=== PATIENT | female | born 1970 | race Caucasian/White ===

== ENCOUNTER 2018-06-11 05:12 | Emergency (ER) | payer MEDICARE ==
[2018-06-11 06:31] LABS: #Basophils 0.1 thou/uL (0.0-0.2); #Eosinphils 0.1 thou/uL (0.0-0.7); #Lymphocytes 2.2 thou/uL (1.20-3.40); #Monocytes 0.8 thou/uL (0.11-0.59); #Neutrophils 5.9 thou/uL (1.40-6.50); %Eosinophils 1.4 % (0.0-10.0); %Lymphocytes 23.9 % (21.0-51.0); %Monocytes 8.3 % (0.0-10.0); %Neutrophils 65.3 % (42.0-75.0); Hemoglobin 11.7 g/dL (12.0-16.0); Mean Corpuscular HGB CONC 32.4 g/dL (32.0-36.0); Mean Corpuscular Hemoglobin 27.6 pg (27.0-31.0); Mean Corpuscular Volume 85.1 fL (78.0-98.0); Mean Platelet Volume 6.8 fL (7.4-10.4); Platelet Count 392 thou/uL (130-400); RBC Distribution Width 13.7 % (11.5-14.5); Red Blood Cell (RBC) Count 4.24 mill/uL (4.20-5.40); White Blood Cell (WBC) Count 9.1 thou/uL (4.8-10.8)
[2018-06-11 06:51] LABS: ALT (SGPT) 30 U/L (8-55); AST (SGOT) 37 U/L (5-34); Albumin 4.2 g/dL (3.5-5.0); Alkaline Phosphatase 128 U/L (40-150); Anion Gap 11 mmol/L (10-20); BUN (Urea Nitrogen) 17 mg/dL (7.0-18.7); Bilirubin, Total 0.9 mg/dL (0.2-1.2); CK (CPK) 132 U/L (29-168); Calc. Creatinine Clearance 0 mL/min (70-130); Calcium 9.5 mg/dL (7.8-10.44); Carbon Dioxide 27 mmol/L (22-29); Chloride 104 mmol/L (98-107); Estimated GFR-MDRD 80; Globulin 3.1 g/dL (2.4-3.5); Glucose 99 mg/dL (70-105); Potassium 3.4 mmol/L (3.5-5.1); Protein, Total 7.3 g/dL (6.0-8.3); Sodium 139 mmol/L (136-145)
[2018-06-11] MEDS ORDERED: Morphine 4 MG/ML VIAL ONE (07:33)
[2018-06-11] MEDS ORDERED: Ondansetron PF 4 MG/2 ML Vial ONE (07:33)
[2018-06-11] MEDS ORDERED: Ketorolac Tromethamine 30 MG/ML VIAL ONE (07:47)
--- NOTE | 2018-06-11 09:00 | RAD ---
CHEST ONE VIEW: INDICATIONS: Chest pain. COMPARISON: 08/06/2011 FINDINGS: There is mild cardiomegaly. There is a right chest wall port in place. No consolidation is evident. Stable elevation of the right hemidiaphragm. Post surgical change overlying the right chest wall i s present. No acute osseous abnormality is evident. IMPRESSION: 1. Mild to moderate cardiomegaly without overt evidence of cardiac decompensation. 2. New right chest wall port. POS: BH
--- NOTE | 2018-06-11 09:18 | CT ---
CTA OF THE THORAX UTILIZING IV CONTRAST AND PE PROTOCOL AND 3D REFORMATTED IMAGING: INDICATION: History of chest pain and lymphedema. COMPARISON: CT of the chest, abdomen, and pelvis dated 05/07/2011 and a CTA of the thorax dated 11/18/2012. FINDINGS: No central or segmental pulmonary embolus is evident. There are patchy peripheral subpleural airspace opacities involving the left upper lobe on image 16 o f series 3. There is subsegmental atelectasis in the lingula and left lower lobe. No confluent airspace opacitie s or pleural effusions evident. There is prominent fatty infiltration of the liver. Adrenal glands are normal-appearing. There are bilateral breast reconstructions. There is scattered degenerative and osteoarthritic change. There is a right chest wall port in place . IMPRESSION: 1. No central or segmental pulmonary embolus. 2. Nonspecific subpleural patchy ground-glass opacities within the left upper lobe. Recommend corre lation for any symptoms and signs of possible bronchitis or bronchiolitis. A small bronchopneumonia cannot be entirely excluded. Recommend appropriate imaging followup to document resolution. A CT ex amination in 6-8 weeks may be helpful to document resolution. 3. Fatty infiltration of the liver. POS: BH
== END 2018-06-11 08:00 | disposition home or self-care (01) ==
LOC: ERS 05:12
DX: J18.9 Pneumonia, unspecified organism (principal); F41.9 Anxiety disorder, unspecified; F31.9 Bipolar disorder, unspecified; Z79.01 Long term (current) use of anticoagulants; Z79.899 Other long term (current) drug therapy
CPT/HCPCS: 71045; 71275; 80053; 82550; 84484; 85025; 93005; 96374; 96375; J1885; J2270; J2405

== ENCOUNTER 2019-02-20 12:55 | Emergency (ER) | payer MEDICARE ==
--- NOTE | 2019-02-20 13:25 | RAD ---
EXAM: 2 views of the left hip HISTORY: Left hip pain COMPARISON: None FINDINGS: 2 views of the left hip shows no evidence of acute fracture or dislocation. No degenerative changes are seen. No soft tissue swelling is present. IMPRESSION: No evidence of acute osseous abnormality.
[2019-02-20] MEDS ORDERED: Ketorolac Tromethamine 60 MG/2 ML VIAL ONE (14:43)
== END 2019-02-20 15:00 | disposition home or self-care (01) ==
LOC: ERS 12:55
DX: M25.552 Pain in left hip (principal); F41.9 Anxiety disorder, unspecified; F31.9 Bipolar disorder, unspecified; Z79.899 Other long term (current) drug therapy; W18.30XA Fall on same level, unspecified, initial encounter
CPT/HCPCS: 96372; J1885

== ENCOUNTER 2019-03-13 12:41 | Outpatient (CLI) | payer MEDICARE, MEDICAID ==
--- NOTE | 2019-03-16 11:19 | MRI ---
EXAM: MRI lumbar spine without contrast HISTORY: Multiple sclerosis COMPARISON: None TECHNIQUE: Multiple planar multisequence MR images were obtained of the lumbar spine without contrast . FINDINGS: The vertebral bodies and intervertebral discs demonstrate normal height and alignment without fractur e or subluxation. The prevertebral and paraspinal soft tissues are unremarkable. No marrow signal abnormality is present. The conus medullaris terminates normally at T12/L1. T12/L1: No significant posterior bulge or protrusion. No posterior facet arthrosis. No central latanya l stenosis. No neural foraminal stenosis L1/2: No significant posterior bulge or protrusion. No posterior facet arthrosis. No central canal stenosis. No neural foraminal stenosis L2/3: No significant posterior bulge or protrusion. No posterior facet arthrosis. No central canal stenosis. No neural foraminal stenosis L3/4: No significant posterior bulge or protrusion. No posterior facet arthrosis. No central canal stenosis. No neural foraminal stenosis L4/5: A mild generalized concentric disc bulge. No posterior facet arthrosis. No central canal sten osis. Mild bilateral neural foraminal stenosis L5/S1: Small central protrusion. No posterior facet arthrosis. Mild central canal stenosis. Mild b ilateral neural foraminal stenosis IMPRESSION: Mild degenerative changes of lumbar spine as above.
--- NOTE | 2019-03-16 11:21 | MRI ---
EXAM: MRI of the brain without and with contrast HISTORY: Multiple sclerosis COMPARISON: None available TECHNIQUE: Multiplanar multisequence MR images were obtained of the brain without and with IV contras t. FINDINGS: There are a few scattered foci of high T2/FLAIR signal in the periventricular white matter. No restricted diffusion. No abnormal enhancement to suggest active disease. No hydronephrosis. No extra-axial fluid collection or intracranial hemorrhage. The expected flow voids are present. Corpus callosum, pituitary, and craniocervical junction are within normal limits. The calvarium and overlying soft tissues are unremarkable. The paranasal sinuses and mastoid air cells are well aerated. IMPRESSION: Scattered periventricular white matter disease is consistent with multiple sclerosis. There is no lena dence of active disease.
--- NOTE | 2019-03-16 11:43 | MRI ---
MRI cervical spine with and without contrast: DATE: 03/16/2019 HISTORY: 49-year-old female with multiple sclerosis and breast cancer. COMPARISON: The dictation for this study was postponed, pending arrival of prior outside MRI from [place]. It is [facility] dictated on 03/16/2019 on information that prior studies are not available. FINDINGS: There appears to be multifocal small patches of T2 hyperintense signal at multiple levels of the cerv ical spine from C3 through T1. There is no abnormal intramedullary, extramedullary-intradural, extradural, intraosseous, or perivertebral, spaces. Vertebral body heights are maintained. No major b one marrow signal abnormality. No significant malalignment. Mild disc space narrowing at C5-6. No high-grade disc space narrowing at any level. Facet DJD is mostly mild at various levels. C1-2: No central stenosis. C2-3: Essentially normal. C3-4: No central or high-grade neural foraminal stenosis. C4-5: No central or neural foraminal stenosis. C5-6: Broad-based disc-osteophytic bar complex encroaches upon the anterior aspect of the spinal latanya l, causing mild to moderate central spinal canal stenosis. Bilateral uncinate process osteophytes, left larger than right, result in mild right neural foraminal stenosis and severe left neural foramin al stenosis. C6-7: Central and right paracentral disc-osteophyte complex encroaches upon spinal canal causing mild central spinal canal stenosis. No high-grade neural foraminal stenosis. C7-T1: No central or neural foraminal stenosis. IMPRESSION: 1. Multifocal small intra-axial signal abnormalities in the cervical spinal cord: Evidence for multip le sclerosis plaques. 2. No evidence of metastatic disease. 3. Mild cervical spondylosis.
== END 2019-03-13 12:42 | disposition home or self-care (01) ==
LOC: SCSMRI 12:41
PROVIDERS: ATTEND Psychiatry & Neurology Neurology
DX: G35 Multiple sclerosis (principal); M47.812 Spondylosis without myelopathy or radiculopathy, cervical region; M47.816 Spondylosis without myelopathy or radiculopathy, lumbar region; G93.89 Other specified disorders of brain
CPT/HCPCS: 70553; 72141; 72148

== ENCOUNTER 2019-05-03 16:24 | Emergency (ER) | payer MEDICAID, MEDICARE ==
[~2019-05-03 16:24] MED LIST: Iopamidol-370 76% 500 ML 1 ML ONE
[2019-05-03 17:08] LABS: #Basophils 0.1 thou/uL (0.0-0.2); #Eosinphils 0.2 thou/uL (0.0-0.7); #Lymphocytes 1.8 thou/uL (1.20-3.40); #Monocytes 0.6 thou/uL (0.11-0.59); #Neutrophils 4.3 thou/uL (1.40-6.50); %Basophils 0.9 % (0.0-1.0); %Eosinophils 3.4 % (0.0-10.0); %Lymphocytes 25.6 % (21.0-51.0); %Monocytes 8.7 % (0.0-10.0); %Neutrophils 61.5 % (42.0-75.0); Mean Corpuscular HGB CONC 34.6 g/dL (32.0-36.0); Mean Corpuscular Hemoglobin 29.9 pg (27.0-31.0); Mean Corpuscular Volume 86.4 fL (78.0-98.0); Mean Platelet Volume 6.9 fL (7.4-10.4); Platelet Count 320 thou/uL (130-400); RBC Distribution Width 12.9 % (11.5-14.5); Red Blood Cell (RBC) Count 4.35 mill/uL (4.20-5.40); White Blood Cell (WBC) Count 7.1 thou/uL (4.8-10.8)
--- NOTE | 2019-05-03 17:29 | RAD ---
EXAM: Chest PA and lateral: HISTORY: Chest pain. Midsternal chest pain, x2 weeks COMPARISON: 06/11/2018 FINDINGS: Stable right-sided Mediport catheter. Heart: Normal cardiac silhouette Aorta: Unremarkable Pulmonary vessels: Normal Costophrenic angles: Costophrenic angles are clear. Lungs: No consolidation or masses. Pneumothorax: No pneumothorax Osseous structures: No osseous abnormalities IMPRESSION: No acute cardiopulmonary process.
[2019-05-03 17:32] LABS: ALT (SGPT) 42 U/L (8-55); AST (SGOT) 45 U/L (5-34); Albumin 4.6 g/dL (3.5-5.0); Alkaline Phosphatase 93 U/L (40-110); Anion Gap 12 mmol/L (10-20); BUN (Urea Nitrogen) 12 mg/dL (7.0-18.7); Bilirubin, Total 0.8 mg/dL (0.2-1.2); Calc. Creatinine Clearance 0 mL/min (70-130); Calcium 9.5 mg/dL (7.8-10.44); Carbon Dioxide 27 mmol/L (22-29); Chloride 104 mmol/L (98-107); Estimated GFR-MDRD 77; Globulin 2.9 g/dL (2.4-3.5); Glucose 114 mg/dL (70-105); Potassium 3.9 mmol/L (3.5-5.1); Protein, Total 7.5 g/dL (6.0-8.3); Sodium 139 mmol/L (136-145)
--- NOTE | 2019-05-03 20:15 | CT ---
Exam: CT angiogram of the chest HISTORY: Chest pain, intermittent. Symptoms x2 weeks COMPARISON: 06/11/2018 TECHNIQUE: CT angiogram of the chest is performed in the axial plane. Three-dimensional reformatted i mages are submitted for interpretation FINDINGS: Mediastinum: No mass, lymphadenopathy or hematoma. HEART: Normal size. No significant pericardial fluid. Aorta: No aneurysm or dissection Upper solid abdominal viscera: No abnormal enhancement. Hepatic steatosis is noted Trachea and central bronchi: Patent Pleural spaces: No effusion Lung parenchyma: No masses or consolidation. Linear opacity suggest chronic change Pneumothorax: None Osseous structures: No lytic or blastic lesions Pulmonary arteries: Adequate contrast opacification pulmonary arterial system to the level of segment al arteries. No filling defect to suggest pulmonary embolism IMPRESSION:No evidence of pulmonary artery embolism to the level of the segmental arteries
[2019-05-03 21:42] LABS: Troponin I Less than 0.010 ng/mL (< 0.028)
== END 2019-05-03 22:55 | disposition home or self-care (01) ==
LOC: ERS 16:24
DX: R07.2 Precordial pain (principal); F41.9 Anxiety disorder, unspecified; F31.9 Bipolar disorder, unspecified; Z79.01 Long term (current) use of anticoagulants; Z79.899 Other long term (current) drug therapy; Z79.4 Long term (current) use of insulin
CPT/HCPCS: 36415; 71046; 71275; 80053; 84484; 85025; 85379; 93005; Q9967

== ENCOUNTER 2019-05-04 09:43 | Observation (INO) | payer MEDICARE ==
[2019-05-04 10:59] LABS: #Basophils 0.1 thou/uL (0.0-0.2); #Eosinphils 0.3 thou/uL (0.0-0.7); #Lymphocytes 2.3 thou/uL (1.20-3.40); #Monocytes 0.8 thou/uL (0.11-0.59); #Neutrophils 2.4 thou/uL (1.40-6.50); %Basophils 1.9 % (0.0-1.0); %Eosinophils 5.1 % (0.0-10.0); %Lymphocytes 39.3 % (21.0-51.0); %Neutrophils 40.8 % (42.0-75.0); Mean Corpuscular HGB CONC 33.2 g/dL (32.0-36.0); Mean Corpuscular Hemoglobin 29.5 pg (27.0-31.0); Mean Corpuscular Volume 88.9 fL (78.0-98.0); Mean Platelet Volume 6.6 fL (7.4-10.4); Platelet Count 299 thou/uL (130-400); RBC Distribution Width 13.1 % (11.5-14.5); Red Blood Cell (RBC) Count 4.07 mill/uL (4.20-5.40); White Blood Cell (WBC) Count 5.8 thou/uL (4.8-10.8)
[2019-05-04 11:15] LABS: ALT (SGPT) 38 U/L (8-55); AST (SGOT) 39 U/L (5-34); Albumin 4.1 g/dL (3.5-5.0); Alkaline Phosphatase 90 U/L (40-110); Anion Gap 10 mmol/L (10-20); BUN (Urea Nitrogen) 12 mg/dL (7.0-18.7); Bilirubin, Total 0.5 mg/dL (0.2-1.2); CK (CPK) 35 U/L (29-168); Calc. Creatinine Clearance 0 mL/min (70-130); Calcium 8.8 mg/dL (7.8-10.44); Carbon Dioxide 29 mmol/L (22-29); Chloride 103 mmol/L (98-107); Estimated GFR-MDRD 79; Globulin 2.7 g/dL (2.4-3.5); Glucose 96 mg/dL (70-105); Lipase 19 U/L (8-78); Potassium 3.7 mmol/L (3.5-5.1); Protein, Total 6.8 g/dL (6.0-8.3); Sodium 138 mmol/L (136-145)
[2019-05-04] MEDS ORDERED: Aspirin Chewable 81 MG TAB ONE (12:50)
[2019-05-04] MEDS ORDERED: Senokot S 8.6-50 MG TAB PO PRN (14:38)
[2019-05-04] MEDS ORDERED: Acetaminophen 650 MG Suppository PR PRN (14:38)
[2019-05-04] MEDS ORDERED: Guaifenesin DM 100-10/5 ML UDCUP PO PRN (14:38)
[2019-05-04] MEDS ORDERED: Ketorolac Tromethamine 30 MG/ML VIAL IVP PRN (14:38)
[2019-05-04] MEDS ORDERED: Ondansetron ODT 4 MG TAB PO PRN (14:38)
[2019-05-04] MEDS ORDERED: Ondansetron PF 4 MG/2 ML Vial IVP PRN (14:38)
[2019-05-04 14:47] VITALS: BMI 38.3
--- NOTE | 2019-05-04 14:58 | HP ---
PRIMARY CARE PHYSICIAN: Sandra Law MD CHIEF COMPLAINT: Chest pain and shortness of breath. HISTORY OF PRESENT ILLNESS: This is a 49-year-old white female with a known history of multiple PEs on the lung on Xarelto chronically, also with a history of a previous pericarditis episode while being treated for breast cancer with chemotherapy and with a history of fibromyalgia with chronic pain, who presents with a 2-week history of worsening chest pain along with shortness of breath. The patient reports that two weeks ago, she started having pressure in the middle of her chest right over her sternum. This caused some shortness of breath with ambulation and a little worse when she laid down flat. She is napping as proper herself up to sleep at night. The patient reports that two days ago, it got severely worse. She does report that she has short pain radiating to bilateral chest and back whenever she lays down completely flat now. She does not have much pain or pressure, if she stays seated completely still sitting up. She denies any fever, cough, nausea, vomiting, or worsening edema or any other acute symptoms. She was just to her , who is in the room one week ago, which is a possible stressor right now. PAST MEDICAL HISTORY: 1. Pulmonary embolism x4 on chronic anticoagulation. 2. Migraines. 3. Hepatitis C. 4. Breast cancer with lymph node spread, status post surgical resection, lymph node dissection and chemotherapy in remission. 5. Cervical cancer status post surgical resection. 6. Nonepileptic seizures on Keppra. 7. Multiple sclerosis of the spine. 8. Fibromyalgia with chronic pain on buprenorphine patch weekly. 9. Lymphedema worst in the left upper extremity, but present in all extremities. 10. Chronic constipation, supposed to take lactulose every 7 days, if no bowel movement, but she has not done that and has not had a bowel movement for a month, which is not unusual for her. PAST PSYCHIATRIC HISTORY: 1. Bipolar type 1 with manic episodes. 2. Previous suicidal ideation and attempts. 3. PTSD. 4. Anxiety. PAST SURGICAL HISTORY: 1. Left breast surgery in 2010. 2. Lymph node, axillary node resection in 2012 in the left side. 3. Hysterectomy. SOCIAL HISTORY: No current tobacco, alcohol, or illicit drug use. 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 She is newly , lives with her , previously was and does have children. FAMILY HISTORY: Mother smokes and with coronary artery disease, diabetes, and cancer. Maternal grandmother had breast cancer and of alcoholism. She has two brothers, one with coronary artery disease, one of them from an acute CT at 42 and she has a sister with diabetes. ALLERGIES: 1. LAMICTAL. 2. MORPHINE. 3. PENICILLIN, WHICH CAUSES ANAPHYLAXIS. CURRENT MEDICATIONS: 1. Xarelto 20 mg daily. 2. Latuda 80 mg at bedtime. 3. Vistaril 100 mg twice a day. 4. Keppra 500 mg twice a day. 5. Buprenorphine patch 7.5 mcg/hour transdermal applied once a week. 6. Tecfidera 240 mg twice a day. REVIEW OF SYSTEMS: CONSTITUTIONAL: No fevers. No chills. EYES: No double vision or blurred vision. ENT: No congestion, drainage, or sore throat. CARDIOVASCULAR: See HPI. PULMONARY: No coughing or wheezing. She does have orthopnea and dyspnea on exertion as per the HPI. ABDOMEN: She has chronic abdominal pain and chronic constipation. No nausea or vomiting. She has had constipation. No bowel movement for one month. GENITOURINARY: No dysuria or hematuria. MUSCULOSKELETAL: She has chronic muscle aches in the back and bilateral lower extremities that are at baseline. SKIN: No new rashes or other lesions. NEUROLOGIC: No numbness, tingling, or focal weakness. PSYCHIATRIC: Her bipolar is well controlled right now without any symptoms. PHYSICAL EXAMINATION: VITAL SIGNS: Blood pressure 113/88, pulse 77, respirations 16, temperature 98.9, and O2 saturation 98% on room air. GENERAL: This is a well-developed, obese white female, in no acute distress. HEENT: Pupils are equal, round, and reactive to light. Oropharynx clear without lesions, erythema, or exudate. NECK: Supple. No lymphadenopathy. No thyroid nodules or enlargement. No JVD. HEART: Regular rate and rhythm. No murmurs, rubs, or gallops. LUNGS: Clear to auscultation bilaterally. No wheezes, crackles, or rhonchi. She does have significant tenderness to palpation of this sternal area, which reproduces her pain. ABDOMEN: Soft, obese, and nontender to palpation. Normoactive bowel sounds. No hepatosplenomegaly or other masses. EXTREMITIES: No clubbing or cyanosis. She does have some nonpitting edematous changes especially to the left upper extremity with a little bit to her other extremities as well consistent with chronic venous insufficiency. SKIN: No rashes or lesions noted. NEUROLOGIC: Intact strength and sensation in all extremities. No facial droop. PSYCHIATRIC: Alert and oriented x3. Normal mood and affect. LABORATORY DATA: CBC grossly within normal limits. Coagulation profile shows an elevated D-dimer. Complete metabolic panel shows AST of 39. The rest is completely normal. Cardiac marker sets negative x3. Brain natriuretic peptide less than 10. IMAGING: The patient had a CT scan done yesterday when she originally presented for this. She initially did not want to be admitted, so she left, but came back today when she had second thoughts about getting this worked up. CTA of the chest was negative for any pulmonary embolism. Chest x-ray, I did review the chest x-ray done in the emergency room along with the radiologist's report. The patient has a port in place, but no acute cardiopulmonary process visible. EKG, I did review the EKG done in the emergency room both today and yesterday, they show some persistent T-wave inversions that appear chronic for her. No acute ST-segment changes. ASSESSMENT AND PLAN: 1. Chest pain. Differentials are wide here. She does not appear to be having heart attack, though she does have risk factors for coronary artery disease. The patient has risk factors for coronary artery disease, might benefit from stress testing at some point. However, I am concerned that she may actually be having some pericarditis at this point, so we will hold off any stress testing now. We will get an echocardiogram and consult Cardiology to evaluate her. She may need to be treated with any inflammatories for this pain. We will observe her on the garbage collector overnight. 2. History of pulmonary embolism. She has no pulmonary embolism currently. We will continue her Xarelto. 3. History of possible seizures or pseudoseizures. We will continue her Keppra. 4. Gastrointestinal prophylaxis. Put the patient on Protonix daily given the likelihood of needing nonsteroidal anti-inflammatory drugs for control of pain. 5. Bipolar. Resume the patient's medications once they were inserted in the computer. 6. Chronic pain. We will continue her patch. 7. Code status. I did discuss this with the patient, she is a full code. Should she be incapacitated, her would be her medical decision maker, his name is Morro Lino. Job ID: [id number]
[2019-05-04 16:10] LABS: Troponin I Less than 0.010 ng/mL (< 0.028)
[2019-05-04] MEDS: Naproxen 500 MG TAB PO SCH (21:04)
[2019-05-04] MEDS: levETIRAcetam 500 MG TAB PO SCH (21:05)
[2019-05-04] MEDS: hydrOXYzine Pamoate 25 mg Capsule PO SCH (21:05)
--- NOTE | 2019-05-04 23:30 | CON ---
DATE OF CONSULTATION: 05/04/2019 HISTORY OF PRESENT ILLNESS: Shoshana Johnson is a 49-year-old white female, admitted with 2 weeks of chest discomfort. She has previous history of pulmonary embolism x4 on chronic Xarelto, history of breast cancer, and history of previous pericarditis while being treated for breast cancer. She states that this discomfort has being continuous for 2 weeks. It is in the epigastric area and that radiates from both sides to her back. The pain is definitely pleuritic in nature. The pain is worse when she is supine and better when she is sitting up. She denies any extensive physical activity. PAST MEDICAL HISTORY: Pulmonary embolism x4, on chronic Xarelto. Her four pulmonary embolisms occurred when she was not on anticoagulation. History of breast cancer with metastatic disease. Lymph node status post surgical resection. She had undergone radiation therapy, as well as chemotherapy. Last treatment was in May 2018. Multiple sclerosis of the spine. Nonepileptic seizures on Keppra.Fibromyalgia with chronic pain, bipolar type 1, manic episodes, history of suicidal ideation and attempts. PTSD. Anxiety. PAST SURGICAL HISTORY: Left breast surgery in 2010 with lymph node dissection in 2011. Hysterectomy. MEDICATIONS: 1. Butrans one patch q.7 days. 2. Tecfidera 240 mg b.i.d. 3. Gabapentin 900 b.i.d. 4. Keppra 500 b.i.d. 5. Latuda 80 mg q.p.m. 6. Xarelto 20 daily. 7. Trazodone 50 q.p.m. ALLERGIES: PENICILLIN AND LAMICTAL. SOCIAL HISTORY: Does not smoke or drink. FAMILY HISTORY: Mother has coronary artery disease. PHYSICAL EXAMINATION: VITAL SIGNS: Blood pressure 134/74, pulse 80. HEENT: PERRL. NECK: Supple. CHEST: Clear. CARDIAC: S1 and S2 normal without any S3, S4, murmurs, or rubs. ABDOMEN: Obese. Normal bowel sounds. No tenderness or organomegaly. EXTREMITIES: Revealed no clubbing, cyanosis, or edema. NEUROLOGICAL: Grossly intact. SKIN: Warm and dry. MUSCULOSKELETAL: Examination revealed reproduction of her pain with palpation of the lower sternum. Pain also was intensified with deep inspiration. LABORATORY DATA: EKG reveals normal sinus rhythm with nonspecific T-wave changes. Cardiac enzymes are unremarkable. CBC is unremarkable. D-dimer 0.69. Sodium 138, potassium 3.7, chloride 103, carbon dioxide 29, BUN 12, creatinine 0.78. BNP less than 10.0. CT angiogram of the chest revealed no evidence of pulmonary embolism. There was no significant pericardial fluid. IMPRESSION: 1. Chest wall pain with palpable tenderness reproducing her symptoms. 2. History of previous pericarditis with palpable chest wall tenderness, I do not feel that this is pericarditis. 3. History of pulmonary embolism x4 with negative CT angiogram at this time. 4. History of metastatic breast cancer status post lymph node dissection, radiation therapy and chemotherapy. 5. Bipolar disorder. 6. History of possible seizures. RECOMMENDATIONS: Best option for therapy would be nonsteroidal anti- inflammatory drugs, which can be problematic in someone who is fully anticoagulated. The long-term prophylaxis for recurrent pulmonary embolism with Xarelto is 10 mg daily. I will reduce her dose of Xarelto 10 mg daily and start naproxen. I will follow the patient with you. Job ID: [id number] MTDD
[2019-05-04] MEDS: Acetaminophen 325 MG TAB PO PRN (23:55)
[2019-05-05] MEDS: Acetaminophen 325 MG TAB PO PRN ×2 (04:49→15:47)
[2019-05-05 05:31] LABS: Anion Gap 10 mmol/L (10-20); BUN (Urea Nitrogen) 12 mg/dL (7.0-18.7); Calc. Creatinine Clearance 148 mL/min (70-130); Calcium 8.8 mg/dL (7.8-10.44); Carbon Dioxide 30 mmol/L (22-29); Chloride 104 mmol/L (98-107); Estimated GFR-MDRD 78; Glucose 98 mg/dL (70-105); Potassium 3.8 mmol/L (3.5-5.1); Sodium 140 mmol/L (136-145)
[2019-05-05 06:48] LABS: Hemoglobin 11.5 g/dL (12.0-16.0); Mean Corpuscular HGB CONC 33.8 g/dL (32.0-36.0); Mean Corpuscular Hemoglobin 29.2 pg (27.0-31.0); Mean Corpuscular Volume 86.4 fL (78.0-98.0); Mean Platelet Volume 7.3 fL (7.4-10.4); Platelet Count 223 thou/uL (130-400); RBC Distribution Width 12.9 % (11.5-14.5); Red Blood Cell (RBC) Count 3.94 mill/uL (4.20-5.40); White Blood Cell (WBC) Count 4.7 thou/uL (4.8-10.8)
[2019-05-05 06:58] LABS: Band 1 % (5-11); Eosinophils 3 % (0-10); Lymphocytes 50 % (21-51); MDiff Complete? YES; Monocytes 11 % (0-10); Neutrophil 34 % (42-75)
--- NOTE | 2019-05-05 08:50 | PDOC.HOSPP ---
- Subjective Encounter Date: 05/05/19 Encounter Time: 08:48 Subjective: chest pain improved - Objective Vital Signs & Weight: Vital Signs (12 hours) Temp Pulse Resp BP Pulse Ox 05/05/19 08:10 97.6 F 72 18 138/70 94 L 05/05/19 03:41 98.3 F 80 12 116/60 91 L 05/04/19 23:17 98.4 F 90 13 141/94 H 94 L Weight Weight 237 lb 9.6 oz I&O: 05/04/19 05/05/19 05/06/19 06:59 06:59 06:59 Intake Total 248 Output Total 200 Balance 48 Result Diagrams: 05/05/19 04:55 05/05/19 04:55 Hospitalist ROS - Medication Medications: Active Medications Generic Name Dose Route Start Last Admin Trade Name Freq PRN Reason Stop Dose Admin Acetaminophen 650 mg 05/04/19 14:38 05/05/19 04:49 Tylenol PO 650 mg Q4H PRN Administration Headache/Fever/Mild Pain (1-3) Hydroxyzine Pamoate 100 mg 05/04/19 21:00 05/04/19 21:05 Vistaril PO 100 mg BID DEBBIE Administration Levetiracetam 500 mg 05/04/19 21:00 05/04/19 21:05 Keppra PO 500 mg BID DEBBIE Administration Naproxen 500 mg 05/04/19 21:00 05/04/19 21:04 Naprosyn PO 500 mg BID DEBBIE Administration - Exam General Appearance: awake alert General - other findings: tender at lower sternum, reproduces her symptoms Neck: no JVD Heart: RRR, no murmur Respiratory: CTAB Gastrointestinal: soft, normal bowel sounds Extremities: 1+ LE edema Hosp A/P (1) Chest wall pain Code(s): R07.89 - OTHER CHEST PAIN Status: Acute (2) Anticoagulant long-term use Code(s): Z79.01 - RETIREMENT (CURRENT) USE OF ANTICOAGULANTS Status: Acute (3) Hepatitis C Code(s): B19.20 - UNSPECIFIED VIRAL HEPATITIS C WITHOUT HEPATIC COMA Status: Acute (4) Fibromyalgia Status: Acute - Plan reviewed Dr Almaraz consult cont per his recomendatios FU later today
[2019-05-05] MEDS: hydrOXYzine Pamoate 25 mg Capsule PO SCH (08:56)
[2019-05-05] MEDS: levETIRAcetam 500 MG TAB PO SCH (08:58)
[2019-05-05] MEDS: Naproxen 500 MG TAB PO SCH (08:59)
[2019-05-05] MEDS ORDERED: Rivaroxaban 10 MG TAB PO SCH ×2 (09:00)
[2019-05-05] MEDS ORDERED: FLU VACC QS2019-20(6MOS UP)/PF 60 MCG/0.5 ML SYRINGE IM ONE (09:00)
[2019-05-05] MEDS ORDERED: Prevnar 13-Val Conj/PF 0.5 ML SYRINGE IM ONE (09:00)
[2019-05-05 16:25] VITALS: BP 112/59; TEMP 97.4
--- NOTE | 2019-05-05 18:00 | DIS ---
DATE OF ADMISSION: 05/04/2019 DATE OF DISCHARGE: 05/05/2019 PRIMARY CARE PROVIDER: Sandra Law MD DISPOSITION: Discharged home. FINAL DIAGNOSES: Chest wall pain, history of deep vein thrombosis, long-term use of anticoagulants, fibromyalgia, hepatitis C. DISCHARGE MEDICATIONS: 1. Her Xarelto was reduced from 20 mg to 10 mg a day. 2. Trazodone 50 mg a day. 3. Naprosyn 500 mg p.o. b.i.d. for one week. ALLERGIES: ALLERGIC TO PENICILLINS, LAMICTAL. HOSPITAL COURSE: Consultation, Dr. Martir Almaraz. Procedures, none. The patient was admitted to the Hospitalist Service through [facility] with chest pain, shortness of breath. Her history is pertinent for pulmonary embolism, on Xarelto maintenance long-term. Laboratory revealed a CBC that is unremarkable. Comprehensive metabolic profile was normal except for AST of 39. Cardiac enzymes normal x3. Dr. Almaraz saw the patient, considered chest wall pain, reduced her Xarelto from 20 to 10 a day, recommended Naprosyn 500 mg p.o. b.i.d. The patient is feeling better. I have given her a prescription for 30 days of Xarelto 10 mg a day, prescription for Naprosyn 500 mg p.o. b.i.d. I have gone over the risk of GI upset, etc with Naprosyn. Urged her for abdominal pain, nausea, vomiting, any bleeding, to return immediately to the emergency department. I asked her to see her primary care provider in 3 days for consideration of continuing therapy. Job ID: [id number]
== END 2019-05-05 18:21 | disposition home or self-care (01) ==
LOC: ERS 09:43 → 2SW 14:34
PROVIDERS: ADMIT Emergency Medicine; ATTEND Emergency Medicine
DX: R07.89 Other chest pain (principal); M79.7 Fibromyalgia; G43.909 Migraine, unspecified, not intractable, without status migrainosus; G35 Multiple sclerosis; K59.09 Other constipation; F31.9 Bipolar disorder, unspecified; F43.10 Post-traumatic stress disorder, unspecified; F41.9 Anxiety disorder, unspecified; G89.29 Other chronic pain; Z85.3 Personal history of malignant neoplasm of breast; Z86.711 Personal history of pulmonary embolism; Z86.718 Personal history of other venous thrombosis and embolism; Z91.5 Personal history of self-harm; Z79.01 Long term (current) use of anticoagulants; Z79.899 Other long term (current) drug therapy; Z88.0 Allergy status to penicillin; Z88.8 Allergy status to other drugs, medicaments and biological substances
CPT/HCPCS: 80048; 80053; 82550; 83690; 83880; 84484 ×2; 85025 ×2; 85379; 90670; 90686; 93005; 93306; 96360; 99285; G0008; G0009; 36416; 90471; 96361; 96374; G0378; J1885; Q0177

== ENCOUNTER 2019-08-07 11:29 | Emergency (ER) | payer MEDICAID, MEDICARE ==
[2019-08-07] MEDS ORDERED: HYDROcodone/Acetaminophen 5/325 mg Tablet ONE (11:57)
[2019-08-07 12:04] LABS: #Basophils 0.1 thou/uL (0.0-0.2); #Eosinphils 0.4 thou/uL (0.0-0.7); #Lymphocytes 2.9 thou/uL (1.20-3.40); #Monocytes 0.7 thou/uL (0.11-0.59); #Neutrophils 4.7 thou/uL (1.40-6.50); %Basophils 1.1 % (0.0-1.0); %Eosinophils 4.9 % (0.0-10.0); %Lymphocytes 32.3 % (21.0-51.0); %Monocytes 8.3 % (0.0-10.0); %Neutrophils 53.4 % (42.0-75.0); Hemoglobin 11.7 g/dL (12.0-16.0); Mean Corpuscular HGB CONC 31.7 g/dL (32.0-36.0); Mean Corpuscular Hemoglobin 27.7 pg (27.0-31.0); Mean Corpuscular Volume 87.3 fL (78.0-98.0); Mean Platelet Volume 6.4 fL (7.4-10.4); Platelet Count 373 thou/uL (130-400); RBC Distribution Width 12.8 % (11.5-14.5); Red Blood Cell (RBC) Count 4.22 mill/uL (4.20-5.40); White Blood Cell (WBC) Count 8.8 thou/uL (4.8-10.8)
--- NOTE | 2019-08-07 12:26 | CT ---
CT BRAIN WITHOUT CONTRAST: Date: 08/07/2019 HISTORY: Trauma to head. Patient is on anticoagulant. COMPARISON: 11/17/2010. FINDINGS: No evidence of acute infarct, hemorrhage, midline shift, or abnormal extra-axial fluid collections ar e seen. The ventricular size is normal and the basilar cisterns are patent. The bony calvarium is int act. The visualized paranasal sinuses and mastoid air cells are well aerated. IMPRESSION: No CT evidence of acute intracranial process. POS: C
--- NOTE | 2019-08-07 12:28 | CT ---
Exam: CT cervical spine without contrast HISTORY: Trauma. Pain. COMPARISON: None FINDINGS: No craniocervical dissociation. Appropriate alignment of the lateral masses of C1 and C2. Intact odon toid process Appropriate alignment of the facets. Straightening of normal cervical lordosis may be due to patient position, muscle spasm or cervical co llar Soft tissue neck structures: No mass, lymphadenopathy or hematoma. No prevertebral soft tissue swelli ng. Upper mediastinum and lung apices: Unremarkable Central spinal canal: Neural foramina and central spinal canal are patent. Evaluation is limited by t echnique Vertebral bodies: Cervical spine vertebral body height is maintained. No fracture. IMPRESSION: 1. No fracture 2. Straightening of normal cervical lordosis as above. If there is concern for ligamentous injury, co nsider MRI.
[2019-08-07 12:29] LABS: Bacteria/HPF None Seen HPF (None Seen); Bilirubin Negative (Negative); Blood, Urine Negative (Negative); Clarity Clear (Clear); Glucose, Urine (Dipstick) Normal (Negative); Leukocyte 25 Leu/uL (Negative); Nitrite Negative (Negative); Protein, Urine (Dipstick) 10 mg/dL (Neg-Trace); RBC/HPF 0-3 HPF (0-3); Squamous Epithelial 0-3 HPF (0-3); Urobilinogen Normal mg/dL (Less than 2); WBC/HPF 0-3 HPF (0-3)
[2019-08-07 12:33] LABS: ALT (SGPT) 51 U/L (8-55); AST (SGOT) 42 U/L (5-34); Alkaline Phosphatase 139 U/L (40-110); Anion Gap 12 mmol/L (10-20); BUN (Urea Nitrogen) 14 mg/dL (7.0-18.7); Bilirubin, Total 0.3 mg/dL (0.2-1.2); Calc. Creatinine Clearance 0 mL/min (70-130); Calcium 9.1 mg/dL (7.8-10.44); Carbon Dioxide 29 mmol/L (22-29); Chloride 102 mmol/L (98-107); Estimated GFR-MDRD 77; Globulin 2.6 g/dL (2.4-3.5); Glucose 128 mg/dL (70-105); Potassium 4.4 mmol/L (3.5-5.1); Protein, Total 6.6 g/dL (6.0-8.3); Sodium 139 mmol/L (136-145)
== END 2019-08-07 13:52 | disposition home or self-care (01) ==
LOC: ERS 11:29
DX: S00.03XA Contusion of scalp, initial encounter (principal); F31.9 Bipolar disorder, unspecified; F41.9 Anxiety disorder, unspecified; Z79.01 Long term (current) use of anticoagulants; Z79.899 Other long term (current) drug therapy; Z86.711 Personal history of pulmonary embolism; Z85.72 Personal history of non-Hodgkin lymphomas; W01.0XXA Fall on same level from slipping, tripping and stumbling without subsequent striking against object, initial encounter
CPT/HCPCS: 36415; 51701; 70450; 72125; 80053; 81003; 81015; 84484; 85025; 93005; A4353

== ENCOUNTER 2019-08-20 10:50 | Outpatient (CLI) | payer MEDICARE ==
--- NOTE | 2019-08-20 13:08 | RAD ---
LUMBAR SPINE 6 VIEWS: Date: 08/20/2019 HISTORY: Back pain. MS. FINDINGS: Lumbar vertebra maintain height and alignment. There is a limbus vertebra deformity involving the ant erior superior corner of the L4 vertebra. The disc spaces are preserved. Very mild degenerative spurring. Mild facet hypertrophy. No evidence o f spondylolisthesis or spondylolysis. IMPRESSION: Mild degenerative change. Limbus vertebra at L4 is noted. POS: AGW
== END 2019-08-20 10:51 | disposition home or self-care (01) ==
LOC: SCSRAD 10:50
PROVIDERS: ATTEND Psychiatry & Neurology Neurology
DX: G35 Multiple sclerosis (principal); M47.816 Spondylosis without myelopathy or radiculopathy, lumbar region; M43.8X6 Other specified deforming dorsopathies, lumbar region
CPT/HCPCS: 72100

== ENCOUNTER 2020-01-22 12:36 | Outpatient (CLI) | payer MEDICARE ==
--- NOTE | 2020-01-22 16:13 | MRI ---
MRI BRAIN WITH AND WITHOUT CONTRAST: DATE: 01/22/2020 HISTORY: 49-year-old female with multiple sclerosis. Follow-up. G 35. COMPARISON: 03/13/2019 TECHNIQUE: Multiplanar, multisequence MRI of the brain performed pre- and post-IV injection of gadolinium based contrast agent. FINDINGS: Again noted are the multiple T2 and FLAIR hyperintense lesions, most with Burks's finger configurati on is, involving the bilateral periventricular white matter, extending short distances into the centrum semiovale. There are tiny such lesions involving the undersurface of the corpus callosum incl uding septocallosal interface. These are not only around the bodies of the lateral ventricles bilaterally, but also around the occipital horns and right trigone. There is no enhancement of any of these to indicate active demyelination. There is no involvement of the brachium pontis. There are no new lesions. Ventricles are normal in size and configuration. No mass effect, midline shift, or ex tra-axial fluid collection. No interval change overall. IMPRESSION: 1) mild to moderate demyelinating plaque burden of multiple sclerosis involvement of the brain. 2) no interval change.
--- NOTE | 2020-01-22 16:59 | MRI ---
MRI thoracic spine noncontrast: 01/22/2020 HISTORY: 49-year-old female with multiple sclerosis with bilateral lower extremity weakness. COMPARISON: None FINDINGS: There is degradation of axial images due to motion. There is a large number of T2 hyperintense intram edullary lesions extensively in a patchy manner involving a significant portion of the cross-sectional area of the spinal cord, at all levels throughout the entire thoracic spinal cord. Th ere is no syrinx. No extrinsic cord compression. The cord is diffusely slightly small in caliber for the patient's age. No central spinal canal stenosis. Conus medullaris terminates at approximately T12-L1. Thoracic vertebral body heights are maintained. No high-grade bone marrow signal abnormality. Multilevel mild degenerative disc changes. IMPRESSION: 1.) Extensive multiple sclerosis demyelinating plaques throughout the entire thoracic spinal cord. 2.) Diffuse mild to moderate thoracic spinal cord atrophy.
--- NOTE | 2020-01-22 17:12 | MRI ---
MRI cervical spine noncontrast: 01/22/2020 HISTORY: 49-year-old female with multiple sclerosis with bilateral lower extremity weakness. COMPARISON: 03/13/2019 FINDINGS: Again noted are the multifocal patches of T2 and STIR hyperintense intramedullary lesions in the cerv ical spinal cord at all levels from C3 through T1. No bone marrow signal abnormality. C5-6: Broad-based disc-osteophytic bar complex encroaches upon the anterior aspect of the spinal latanya l, causing mild to moderate central spinal canal stenosis. Bilateral uncinate process osteophytes, left larger than right, result in mild right neural foraminal stenosis and severe left neural foramin al stenosis. C6-7: Central and right paracentral disc-osteophyte complex encroaches upon spinal canal causing mild central spinal canal stenosis. No high-grade neural foraminal stenosis. No central or neural foraminal stenosis at any of the other levels. No interval change overall. IMPRESSION: 1.) Large number of intramedullary demyelinating plaques of multiple sclerosis throughout the cervica l spinal cord from C3 through the upper thoracic spinal cord. 2) low-grade cervical spondylosis. 3) no interval change
== END 2020-01-22 12:37 | disposition home or self-care (01) ==
LOC: SCSMRI 12:36
PROVIDERS: ATTEND Psychiatry & Neurology Neurology
DX: G35 Multiple sclerosis (principal); M47.812 Spondylosis without myelopathy or radiculopathy, cervical region; G95.89 Other specified diseases of spinal cord
CPT/HCPCS: 70553; 72141; 72146

== ENCOUNTER 2020-06-08 11:25 | Outpatient (CLI) | payer MEDICARE | END 2020-06-08 11:26 | disposition home or self-care (01) | LOC: BICRAD 11:25 | PROVIDERS: ATTEND Psychiatry & Neurology Neurology | DX: R76.11 Nonspecific reaction to tuberculin skin test without active tuberculosis (principal) | CPT/HCPCS: 71046 ==

== ENCOUNTER 2020-06-11 12:50 | Observation (INO) | payer MEDICARE ==
[2020-06-11] MEDS ORDERED: Ondansetron ODT 4 MG TAB ONE (13:24)
[2020-06-11] MEDS ORDERED: Acetaminophen 500 MG TAB ONE (15:55)
[2020-06-11] MEDS ORDERED: Ondansetron PF 4 MG/2 ML Vial ONE (15:55)
[2020-06-11] MEDS ORDERED: diphenhydrAMINE 50 MG/ML VIAL ONE (15:55)
[2020-06-11] MEDS ORDERED: Meclizine HCl 25 MG TAB ONE (15:55)
[2020-06-11 16:00] LABS: #Basophils 0.1 thou/uL (0.0-0.2); #Eosinphils 0.2 thou/uL (0.0-0.7); #Lymphocytes 3.4 thou/uL (1.20-3.40); #Monocytes 0.6 thou/uL (0.11-0.59); #Neutrophils 5.1 thou/uL (1.40-6.50); %Basophils 1.3 % (0.0-1.0); %Eosinophils 2.6 % (0.0-10.0); %Lymphocytes 35.8 % (21.0-51.0); %Monocytes 6.2 % (0.0-10.0); %Neutrophils 54.1 % (42.0-75.0); Mean Corpuscular HGB CONC 33.2 g/dL (32.0-36.0); Mean Corpuscular Hemoglobin 29.2 pg (27.0-31.0); Mean Corpuscular Volume 87.7 fL (78.0-98.0); Mean Platelet Volume 7.3 fL (7.4-10.4); Platelet Count 342 thou/uL (130-400); RBC Distribution Width 13.2 % (11.5-14.5); Red Blood Cell (RBC) Count 4.46 mill/uL (4.20-5.40); White Blood Cell (WBC) Count 9.4 thou/uL (4.8-10.8)
[2020-06-11 16:20] LABS: ALT (SGPT) 41 U/L (8-55); AST (SGOT) 43 U/L (5-34); Albumin 4.1 g/dL (3.5-5.0); Alkaline Phosphatase 194 U/L (40-110); Anion Gap 14 mmol/L (10-20); BUN (Urea Nitrogen) 8 mg/dL (7.0-18.7); Bilirubin, Total 0.4 mg/dL (0.2-1.2); Calc. Creatinine Clearance 0 mL/min (70-130); Calcium 8.9 mg/dL (7.8-10.44); Carbon Dioxide 27 mmol/L (22-29); Chloride 102 mmol/L (98-107); Globulin 3.3 g/dL (2.4-3.5); Glucose 95 mg/dL (70-105); Protein, Total 7.4 g/dL (6.0-8.3); Sodium 139 mmol/L (136-145)
[2020-06-11 16:48] LABS: Bacteria/HPF 4+ HPF (None Seen); Bilirubin Negative (Negative); Blood, Urine Negative (Negative); Clarity Turbid (Clear); Glucose, Urine (Dipstick) Normal (Negative); Ketone, Urine Negative (Negative); Leukocyte 500 Leu/uL (Negative); Nitrite 2+ (Negative); Protein, Urine (Dipstick) Negative (Neg-Trace); RBC/HPF 0-3 HPF (0-3); Specific Gravity, Urine 1.012 (1.002-1.036); Urobilinogen Normal mg/dL (Less than 2); WBC/HPF Greater than 50 HPF (0-3)
[2020-06-11] MEDS ORDERED: Ketorolac Tromethamine 30 MG/ML VIAL ONE (17:47)
[2020-06-11] MEDS ORDERED: cefTRIAXone\\ROCEPHIN 1 GM VIAL ONE (20:05)
[2020-06-11] MEDS ORDERED: Ondansetron PF 4 MG/2 ML Vial IVP PRN (21:21)
[2020-06-11] MEDS ORDERED: Ondansetron ODT 4 MG TAB PO PRN (21:21)
[2020-06-11 23:14] VITALS: BMI 39.9
[2020-06-12 04:22] LABS: SARS-CoV-2 PCR by NAA Not Detected (NotDetected)
[2020-06-12 05:50] LABS: #Basophils 0.2 thou/uL (0.0-0.2); #Eosinphils 0.2 thou/uL (0.0-0.7); #Lymphocytes 3.1 thou/uL (1.20-3.40); #Monocytes 0.5 thou/uL (0.11-0.59); #Neutrophils 4.4 thou/uL (1.40-6.50); %Eosinophils 2.8 % (0.0-10.0); %Lymphocytes 37.3 % (21.0-51.0); %Monocytes 5.6 % (0.0-10.0); %Neutrophils 52.4 % (42.0-75.0); Hemoglobin 12.1 g/dL (12.0-16.0); Mean Corpuscular HGB CONC 33.4 g/dL (32.0-36.0); Mean Corpuscular Hemoglobin 29.2 pg (27.0-31.0); Mean Corpuscular Volume 87.6 fL (78.0-98.0); Mean Platelet Volume 7.3 fL (7.4-10.4); Platelet Count 313 thou/uL (130-400); RBC Distribution Width 13.2 % (11.5-14.5); Red Blood Cell (RBC) Count 4.13 mill/uL (4.20-5.40); White Blood Cell (WBC) Count 8.4 thou/uL (4.8-10.8)
[2020-06-12 06:15] LABS: Anion Gap 13 mmol/L (10-20); BUN (Urea Nitrogen) 10 mg/dL (7.0-18.7); Calc. Creatinine Clearance 157 mL/min (70-130); Calcium 8.7 mg/dL (7.8-10.44); Carbon Dioxide 28 mmol/L (22-29); Chloride 104 mmol/L (98-107); Glucose 113 mg/dL (70-105); Potassium 3.5 mmol/L (3.5-5.1); Sodium 141 mmol/L (136-145)
[2020-06-12] MEDS: Acetaminophen 325 MG TAB PO PRN ×3 (08:08→20:55)
[2020-06-12] MEDS: Modafinil 100 MG TAB PO SCH (08:09)
[2020-06-12] MEDS: levETIRAcetam 500 MG TAB PO SCH ×2 (08:10→20:44)
[2020-06-12] MEDS ORDERED: DALFAMPRIDINE 10 MG PO SCH (09:00)
[2020-06-12] MEDS ORDERED: Enoxaparin Sodium 40 MG/0.4 ML SYRINGE SC SCH (09:00)
[2020-06-12] MEDS ORDERED: Gabapentin 300 MG CAP PO SCH ×2 (09:00→11:15)
[2020-06-12] MEDS ORDERED: BUPRENORPHINE 7.5 MG TOP SCH (09:00)
[2020-06-12] MEDS ORDERED: FLU VACC QS2020-21(6MOS UP)/PF 60 MCG/0.5 ML SYRINGE IM ONE (09:00)
[2020-06-12] MEDS ORDERED: Magnevist 469MG/ML 20 ML VIAL ONE (09:42)
[2020-06-12] MEDS: Meclizine HCl 25 MG TAB PO PRN ×2 (14:09→22:00)
[2020-06-12] MEDS: Methocarbamol 500 MG TAB PO PRN ×2 (14:55→20:56)
[2020-06-12] MEDS ORDERED: Rivaroxaban 10 MG TAB PO SCH (17:00)
[2020-06-12] MEDS ORDERED: cefTRIAXone\\ROCEPHIN 1 GM in Sodium Chloride 0.9% 100 ML IVPB SCH (20:00)
[2020-06-12] MEDS: Gabapentin 300 MG CAP PO SCH (20:44)
[2020-06-12] MEDS ORDERED: Non-Formulary Item 1 EACH (Lurasidone Hcl [Latuda] 80 MG Tablet) PO SCH (21:00)
[2020-06-12] MEDS ORDERED: Nortriptyline HCl 25 MG CAP PO SCH (21:00)
[2020-06-13] MEDS: Acetaminophen 325 MG TAB PO PRN ×2 (04:09→11:48)
[2020-06-13 08:08] VITALS: TEMP 97.8
[2020-06-13] MEDS: Gabapentin 300 MG CAP PO SCH (08:22)
[2020-06-13] MEDS: levETIRAcetam 500 MG TAB PO SCH (08:23)
[2020-06-13] MEDS: Modafinil 100 MG TAB PO SCH (08:23)
[2020-06-13 12:15] VITALS: BP 169/86
== END 2020-06-13 15:53 | disposition home health service (06) ==
LOC: ERS 12:50 → 2SW 20:19
PROVIDERS: ADMIT Student in an Organized Health Care Education/Training Program; ATTEND Internal Medicine
DX: R51.9 Headache, unspecified (principal); R42 Dizziness and giddiness; G35 Multiple sclerosis; I82.409 Acute embolism and thrombosis of unspecified deep veins of unspecified lower extremity; F31.9 Bipolar disorder, unspecified; F43.10 Post-traumatic stress disorder, unspecified; F41.9 Anxiety disorder, unspecified; K11.20 Sialoadenitis, unspecified; F44.5 Conversion disorder with seizures or convulsions; G62.9 Polyneuropathy, unspecified; N31.9 Neuromuscular dysfunction of bladder, unspecified; Z79.01 Long term (current) use of anticoagulants; Z79.899 Other long term (current) drug therapy; Z85.3 Personal history of malignant neoplasm of breast; Z85.41 Personal history of malignant neoplasm of cervix uteri; Z88.0 Allergy status to penicillin; Z88.8 Allergy status to other drugs, medicaments and biological substances; W19.XXXA Unspecified fall, initial encounter; Z20.822 Contact with and (suspected) exposure to COVID-19
CPT/HCPCS: 70450; 70553; 71045; 80048; 80053; 82962; 84484; 85025 ×2; 93005; 96365; 96375; 96376; 97116 ×2; 97139 ×3; 99285; G0378 ×4; U0003; U0005; 36415; 36416; 81003; 81015; 87635; A9579; J0696; J1200; J1885; J2405; J3490; Q0162

== ENCOUNTER 2020-06-26 12:23 | Emergency (ER) | payer MEDICARE, MEDICAID ==
[2020-06-26] MEDS ORDERED: Ketorolac Tromethamine 30 MG/ML VIAL ONE (14:38)
== END 2020-06-26 14:55 | disposition home or self-care (01) ==
LOC: ERS 12:23
DX: S09.90XA Unspecified injury of head, initial encounter (principal); B19.20 Unspecified viral hepatitis C without hepatic coma; Z79.899 Other long term (current) drug therapy; W22.8XXA Striking against or struck by other objects, initial encounter
CPT/HCPCS: 51701; 70450; 93005; 96372; J1885

== ENCOUNTER 2020-07-21 19:05 | Emergency (ER) | payer MEDICARE, MEDICAID ==
[2020-07-21] MEDS ORDERED: levETIRAcetam 500 MG/100 ML PREMIX BAG ONE (19:24)
[2020-07-21 19:43] LABS: #Basophils 0.1 thou/uL (0.0-0.2); #Eosinphils 0.3 thou/uL (0.0-0.7); #Lymphocytes 1.9 thou/uL (1.20-3.40); #Monocytes 0.5 thou/uL (0.11-0.59); #Neutrophils 3.9 thou/uL (1.40-6.50); %Basophils 1.3 % (0.0-1.0); %Lymphocytes 28.8 % (21.0-51.0); %Monocytes 7.5 % (0.0-10.0); %Neutrophils 58.5 % (42.0-75.0); Hemoglobin 13.1 g/dL (12.0-16.0); Mean Corpuscular Hemoglobin 28.3 pg (27.0-31.0); Mean Corpuscular Volume 88.4 fL (78.0-98.0); Mean Platelet Volume 7.5 fL (7.4-10.4); Platelet Count 289 thou/uL (130-400); RBC Distribution Width 13.1 % (11.5-14.5); Red Blood Cell (RBC) Count 4.61 mill/uL (4.20-5.40); White Blood Cell (WBC) Count 6.6 thou/uL (4.8-10.8)
[2020-07-21 20:04] LABS: Calc. Creatinine Clearance 0 mL/min (70-130)
[2020-07-21 21:37] LABS: Chloride 104 mmol/L (98-107); Potassium 3.4 mmol/L (3.5-5.1)
[2020-07-21 21:39] LABS: Carbon Dioxide 24 mmol/L (22-29)
[2020-07-21 21:40] LABS: Sodium 139 mmol/L (136-145)
[2020-07-21 21:41] LABS: Anion Gap 14 mmol/L (10-20); BUN (Urea Nitrogen) 7 mg/dL (7.0-18.7)
[2020-07-21 21:42] LABS: Calcium 8.9 mg/dL (7.8-10.44); Glucose 104 mg/dL (70-105)
[2020-07-21 21:43] LABS: Albumin 3.8 g/dL (3.5-5.0); Bilirubin, Total 0.9 mg/dL (0.2-1.2); Protein, Total 7.4 g/dL (6.0-8.3)
[2020-07-21 21:45] LABS: AST (SGOT) 63 U/L (5-34); Alkaline Phosphatase 143 U/L (40-110); Globulin 3.6 g/dL (2.4-3.5)
[2020-07-21 21:46] LABS: ALT (SGPT) 34 U/L (8-55); Lipase 22 U/L (8-78)
== END 2020-07-21 22:30 | disposition home or self-care (01) ==
LOC: ERS 19:05
DX: R56.9 Unspecified convulsions (principal); R11.2 Nausea with vomiting, unspecified
CPT/HCPCS: 36415; 70450; 80053; 80177; 83690; 85025; 93005; 96365; J1953

== ENCOUNTER 2020-07-26 16:03 | Outpatient (CLI) | payer MEDICARE, MEDICAID | END 2020-07-26 16:04 | disposition home or self-care (01) | LOC: BICRAD 16:03 | PROVIDERS: ATTEND Physician Assistant Medical | DX: K59.09 Other constipation (principal); R11.2 Nausea with vomiting, unspecified | CPT/HCPCS: 74019 ==

== ENCOUNTER 2020-07-27 22:05 | Emergency (ER) | payer MEDICARE, MEDICAID ==
[2020-07-28 00:20] LABS: #Basophils 0.1 thou/uL (0.0-0.2); #Eosinphils 0.2 thou/uL (0.0-0.7); #Lymphocytes 2.8 thou/uL (1.20-3.40); #Monocytes 0.4 thou/uL (0.11-0.59); #Neutrophils 4.2 thou/uL (1.40-6.50); %Basophils 1.5 % (0.0-1.0); %Eosinophils 3.1 % (0.0-10.0); %Lymphocytes 35.8 % (21.0-51.0); %Monocytes 5.5 % (0.0-10.0); Mean Corpuscular HGB CONC 32.9 g/dL (32.0-36.0); Mean Corpuscular Hemoglobin 29.4 pg (27.0-31.0); Mean Corpuscular Volume 89.5 fL (78.0-98.0); Mean Platelet Volume 7.4 fL (7.4-10.4); Platelet Count 315 thou/uL (130-400); Red Blood Cell (RBC) Count 4.43 mill/uL (4.20-5.40); White Blood Cell (WBC) Count 7.8 thou/uL (4.8-10.8)
[2020-07-28 00:44] LABS: ALT (SGPT) 40 U/L (8-55); AST (SGOT) 59 U/L (5-34); Albumin 3.9 g/dL (3.5-5.0); Alkaline Phosphatase 147 U/L (40-110); Anion Gap 16 mmol/L (10-20); BUN (Urea Nitrogen) 7 mg/dL (7.0-18.7); Bilirubin, Total 0.8 mg/dL (0.2-1.2); Calc. Creatinine Clearance 0 mL/min (70-130); Calcium 9.2 mg/dL (7.8-10.44); Carbon Dioxide 24 mmol/L (22-29); Chloride 98 mmol/L (98-107); Globulin 3.6 g/dL (2.4-3.5); Glucose 115 mg/dL (70-105); Lipase 16 U/L (8-78); Magnesium 1.5 mg/dL (1.6-2.6); Potassium 3.3 mmol/L (3.5-5.1); Protein, Total 7.5 g/dL (6.0-8.3); Sodium 135 mmol/L (136-145)
[2020-07-28] MEDS ORDERED: Ondansetron PF 4 MG/2 ML Vial ONE (01:29)
[2020-07-28 01:41] LABS: Bilirubin Negative (Negative); Blood, Urine Negative (Negative); Clarity Clear (Clear); Glucose, Urine (Dipstick) Normal (Negative); Ketone, Urine Negative (Negative); Leukocyte Negative Leu/uL (Negative); Nitrite Negative (Negative); Protein, Urine (Dipstick) Negative (Neg-Trace); Specific Gravity, Urine 1.015 (1.002-1.036); Urobilinogen Normal mg/dL (Less than 2)
[2020-07-28] MEDS ORDERED: Iopamidol-370 76% 500 ML 1 ML ONE (14:39)
== END 2020-07-28 03:24 | disposition home or self-care (01) ==
LOC: ERS 22:05
DX: K59.00 Constipation, unspecified (principal); R11.2 Nausea with vomiting, unspecified; G35 Multiple sclerosis; B19.20 Unspecified viral hepatitis C without hepatic coma; Z86.711 Personal history of pulmonary embolism; Z79.899 Other long term (current) drug therapy
CPT/HCPCS: 36415; 51701; 74177; 80053; 81003; 83690; 83735; 84484; 85025; 87086; 93005; 96374; J2405; Q9967

== ENCOUNTER 2020-08-09 14:04 | Outpatient (CLI) | payer MEDICARE, MEDICAID | END 2020-08-09 14:05 | disposition home or self-care (01) | LOC: BICRAD 14:04 | PROVIDERS: ATTEND Physician Assistant Medical | DX: K59.09 Other constipation (principal); Z98.890 Other specified postprocedural states | CPT/HCPCS: 74018 ==

== ENCOUNTER 2020-08-12 12:24 | Outpatient (CLI) | payer MEDICARE, MEDICAID | END 2020-08-12 12:25 | disposition home or self-care (01) | LOC: BICRAD 12:24 | PROVIDERS: ATTEND Physician Assistant Medical | DX: K59.09 Other constipation (principal) | CPT/HCPCS: 74018 ==

== ENCOUNTER 2020-08-17 13:56 | Outpatient (CLI) | payer MEDICARE, MEDICAID | END 2020-08-17 13:57 | disposition home or self-care (01) | LOC: BICRAD 13:56 | PROVIDERS: ATTEND Physician Assistant Medical | DX: K59.09 Other constipation (principal) | CPT/HCPCS: 74018 ==

== ENCOUNTER 2020-08-18 15:42 | Emergency (ER) | payer MEDICARE, MEDICAID ==
[2020-08-18] MEDS ORDERED: HYDROcodone/Acetaminophen 5/325 mg Tablet ONE (16:29)
== END 2020-08-18 19:20 | disposition home or self-care (01) ==
LOC: ERS 15:42
DX: S82.441A Displaced spiral fracture of shaft of right fibula, initial encounter for closed fracture (principal); Z79.899 Other long term (current) drug therapy; W19.XXXA Unspecified fall, initial encounter
CPT/HCPCS: 29515

== ENCOUNTER 2021-02-21 13:05 | Outpatient (CLI) | payer MEDICARE, MEDICAID | END 2021-02-21 13:06 | disposition home or self-care (01) | LOC: SCSMRI 13:05 | PROVIDERS: ATTEND Psychiatry & Neurology Neurology | DX: G35 Multiple sclerosis (principal); M47.812 Spondylosis without myelopathy or radiculopathy, cervical region | CPT/HCPCS: 70553; 72141; 82565 ==

== ENCOUNTER 2021-03-13 18:15 | Emergency (ER) | payer MEDICARE, MEDICAID | END 2021-03-13 19:26 | disposition home or self-care (01) | LOC: ERS 18:15 | DX: S00.551A Superficial foreign body of lip, initial encounter (principal) | CPT/HCPCS: 99283 ==

== ENCOUNTER 2021-07-18 22:00 | Emergency (ER) | payer MEDICARE, OTHER ==
[2021-07-18] MEDS ORDERED: Morphine 4 MG/ML VIAL ONE (22:45)
[2021-07-18] MEDS ORDERED: Ondansetron PF 4 MG/2 ML Vial ONE (22:45)
[2021-07-18] MEDS ORDERED: methylPREDNISolone Sod Succ 1 GM in Sodium Chloride 0.9% 100 ML IVPB SCH (23:00)
[2021-07-18 23:30] LABS: Hemoglobin 12.4 g/dL (12.0-16.0); Mean Corpuscular HGB CONC 32.6 g/dL (32.0-36.0); Mean Corpuscular Hemoglobin 29.1 pg (27.0-31.0); Mean Corpuscular Volume 89.3 fL (78.0-98.0); Platelet Count 317 thou/uL (130-400); RBC Distribution Width 12.1 % (11.5-14.5); Red Blood Cell (RBC) Count 4.28 mill/uL (4.20-5.40)
[2021-07-18 23:46] LABS: Lymphocytes 31 % (21-51); MDiff Complete? YES; Monocytes 8 % (0-10); Neutrophil 61 % (42-75); Platelet Morphology Comment Appears Adequate; RBC Morphology Normal
[2021-07-18 23:48] LABS: ALT (SGPT) 40 U/L (8-55); AST (SGOT) 31 U/L (5-34); Albumin 3.7 g/dL (3.5-5.0); Alkaline Phosphatase 141 U/L (40-110); Anion Gap 14 mmol/L (10-20); BUN (Urea Nitrogen) 13 mg/dL (7.0-18.7); Bilirubin, Total 0.5 mg/dL (0.2-1.2); Calc. Creatinine Clearance 0 mL/min (70-130); Calcium 8.3 mg/dL (7.8-10.44); Carbon Dioxide 23 mmol/L (22-29); Chloride 103 mmol/L (98-107); Globulin 3.3 g/dL (2.4-3.5); Glucose 107 mg/dL (70-105); Magnesium 1.9 mg/dL (1.6-2.6); Potassium 3.8 mmol/L (3.5-5.1); Sodium 136 mmol/L (136-145)
== END 2021-07-19 01:42 | disposition home or self-care (01) ==
LOC: ERS 22:00
DX: M54.9 Dorsalgia, unspecified (principal); R53.1 Weakness
CPT/HCPCS: 36415; 80053; 83735; 84443; 85025; 93005; 96374; 96375; J2270; J2405; J2930; J3490

== ENCOUNTER 2021-07-23 14:40 | Inpatient (IN) | payer MEDICARE, MEDICAID ==
[2021-07-23] MEDS ORDERED: Ketorolac Tromethamine 30 MG/ML VIAL ONE (16:26)
[2021-07-23] MEDS ORDERED: Fentanyl 100 MCG/2 ML VIAL ONE (16:28)
[2021-07-23] MEDS ORDERED: Lorazepam 2 MG/ML VIAL ONE (16:28)
[2021-07-23 16:30] LABS: #Basophils 0.2 thou/uL (0.0-0.2); #Eosinphils 0.3 thou/uL (0.0-0.7); #Lymphocytes 5.3 thou/uL (1.20-3.40); #Monocytes 0.8 thou/uL (0.11-0.59); #Neutrophils 7.3 thou/uL (1.40-6.50); %Basophils 1.2 % (0.0-1.0); %Eosinophils 2.2 % (0.0-10.0); %Lymphocytes 38.5 % (21.0-51.0); %Monocytes 5.5 % (0.0-10.0); %Neutrophils 52.5 % (42.0-75.0); Hemoglobin 13.7 g/dL (12.0-16.0); Mean Corpuscular HGB CONC 32.8 g/dL (32.0-36.0); Mean Corpuscular Hemoglobin 28.8 pg (27.0-31.0); Mean Corpuscular Volume 87.8 fL (78.0-98.0); Mean Platelet Volume 6.6 fL (7.4-10.4); Platelet Count 323 thou/uL (130-400); RBC Distribution Width 12.3 % (11.5-14.5); Red Blood Cell (RBC) Count 4.76 mill/uL (4.20-5.40); White Blood Cell (WBC) Count 13.8 thou/uL (4.8-10.8)
[2021-07-23 16:52] LABS: ALT (SGPT) 105 U/L (8-55); AST (SGOT) 86 U/L (5-34); Albumin 3.7 g/dL (3.5-5.0); Alkaline Phosphatase 149 U/L (40-110); Anion Gap 16 mmol/L (10-20); BUN (Urea Nitrogen) 26 mg/dL (7.0-18.7); Bilirubin, Total 0.3 mg/dL (0.2-1.2); Calc. Creatinine Clearance 0 mL/min (70-130); Calcium 8.5 mg/dL (7.8-10.44); Carbon Dioxide 28 mmol/L (22-29); Chloride 99 mmol/L (98-107); Globulin 3.1 g/dL (2.4-3.5); Glucose 100 mg/dL (70-105); Potassium 3.7 mmol/L (3.5-5.1); Protein, Total 6.8 g/dL (6.0-8.3); Sodium 139 mmol/L (136-145)
[2021-07-23] MEDS ORDERED: Senokot S 8.6-50 MG TAB PO PRN (17:56)
[2021-07-23] MEDS ORDERED: Ondansetron PF 4 MG/2 ML Vial IVP PRN (17:56)
[2021-07-23] MEDS ORDERED: Dextrose 50% Abboject 50 ML SYRINGE SLOW IVP PRN (18:05)
[2021-07-23] MEDS ORDERED: Dextrose 5% in Water 1,000 ML IV PRN (18:05)
[2021-07-23 19:52] VITALS: BMI 38.8
[2021-07-23] MEDS: Morphine 2 MG/ML VIAL SLOW IVP PRN (20:03)
[2021-07-23] MEDS: Famotidine 20 MG TAB PO SCH (20:03)
[2021-07-23] MEDS: methylPREDNISolone Sod Succ 1 GM in Sodium Chloride 0.9% 250 ML 250 ML IVPB SCH (21:10)
[2021-07-23 22:22] LABS: Bacteria/HPF 4+ HPF (None Seen); Bilirubin Negative (Negative); Blood, Urine Negative (Negative); Clarity Clear (Clear); Glucose, Urine (Dipstick) Normal (Negative); Ketone, Urine Negative (Negative); Leukocyte 75 Leu/uL (Negative); Mucous/LPF 1+ LPF (<2+); Nitrite Negative (Negative); Protein, Urine (Dipstick) Negative (Neg-Trace); RBC/HPF 0-3 HPF (0-3); Specific Gravity, Urine 1.017 (1.002-1.036); Squamous Epithelial 0-3 HPF (0-3); Urobilinogen Normal mg/dL (Less than 2); pH, Urine 5.5 (5.0-9.0)
[2021-07-23 22:23] LABS: Urine Culture Reflex Yes Yes
[2021-07-24 04:57] LABS: #Basophils 0.2 thou/uL (0.0-0.2); #Lymphocytes 1.6 thou/uL (1.20-3.40); %Eosinophils 0.1 % (0.0-10.0); %Lymphocytes 14.8 % (21.0-51.0); %Monocytes 0.2 % (0.0-10.0); %Neutrophils 82.8 % (42.0-75.0); Hemoglobin 12.3 g/dL (12.0-16.0); Mean Corpuscular HGB CONC 32.9 g/dL (32.0-36.0); Mean Platelet Volume 6.2 fL (7.4-10.4); Platelet Count 321 thou/uL (130-400); RBC Distribution Width 12.3 % (11.5-14.5); Red Blood Cell (RBC) Count 4.24 mill/uL (4.20-5.40); White Blood Cell (WBC) Count 10.9 thou/uL (4.8-10.8)
[2021-07-24 05:29] LABS: ALT (SGPT) 104 U/L (8-55); AST (SGOT) 74 U/L (5-34); Albumin 3.5 g/dL (3.5-5.0); Alkaline Phosphatase 136 U/L (40-110); Anion Gap 15 mmol/L (10-20); BUN (Urea Nitrogen) 30 mg/dL (7.0-18.7); Bilirubin, Total 0.6 mg/dL (0.2-1.2); Calc. Creatinine Clearance 108 mL/min (70-130); Carbon Dioxide 28 mmol/L (22-29); Chloride 97 mmol/L (98-107); Cholesterol 167 mg/dl (< 200 Desired); Globulin 3.3 g/dL (2.4-3.5); Glucose 229 mg/dL (70-105); HDL Cholesterol 42 mg/dL (>60 Neg Risk); LDL Cholesterol, Calculated 110 mg/dL; Potassium 4.6 mmol/L (3.5-5.1); Protein, Total 6.8 g/dL (6.0-8.3); Sodium 135 mmol/L (136-145); Triglycerides 76 mg/dL (Less than 150)
[2021-07-24] MEDS: HumaLOG 300 UNITS/3 ML VIAL SC PRN ×3 (06:04→17:13)
[2021-07-24] MEDS: Famotidine 20 MG TAB PO SCH ×2 (08:07→20:34)
[2021-07-24] MEDS: Morphine 2 MG/ML VIAL SLOW IVP PRN ×3 (08:51→20:40)
[2021-07-24] MEDS ORDERED: BUPRENORPHINE 7.5 MG TOP SCH ×2 (09:00)
[2021-07-24] MEDS ORDERED: DALFAMPRIDINE 10 MG PO SCH ×2 (09:00→21:00)
[2021-07-24] MEDS: levETIRAcetam 500 MG TAB PO SCH ×2 (09:48→20:33)
[2021-07-24] MEDS: Rivaroxaban 10 MG TAB PO SCH (09:48)
[2021-07-24] MEDS: Gabapentin 300 MG CAP PO SCH ×2 (09:48→20:33)
[2021-07-24] MEDS: hydrOXYzine Pamoate 25 mg Capsule PO SCH ×2 (09:51→21:28)
[2021-07-24 11:58] LABS: SARS-CoV-2 PCR by NAA Not Detected (NotDetected)
[2021-07-24] MEDS: Nortriptyline HCl 25 MG CAP PO SCH (20:34)
[2021-07-24] MEDS: Lurasidone 20 MG TABLET PO SCH (20:34)
[2021-07-24] MEDS ORDERED: NORTRIPTYLINE HCL 50 MG PO SCH (21:00)
[2021-07-24] MEDS ORDERED: Non-Formulary Item 1 EACH (Lurasidone Hcl [Latuda] 80 MG Tablet) PO SCH (21:00)
[2021-07-24] MEDS: methylPREDNISolone Sod Succ 1 GM in Sodium Chloride 0.9% 250 ML 250 ML IVPB SCH (21:28)
[2021-07-25] MEDS: HumaLOG 300 UNITS/3 ML VIAL SC PRN ×4 (05:52→20:38)
[2021-07-25] MEDS: Morphine 2 MG/ML VIAL SLOW IVP PRN ×4 (05:54→20:34)
[2021-07-25] MEDS: levETIRAcetam 500 MG TAB PO SCH ×2 (07:57→20:37)
[2021-07-25] MEDS: Rivaroxaban 10 MG TAB PO SCH (07:57)
[2021-07-25] MEDS: hydrOXYzine Pamoate 25 mg Capsule PO SCH ×2 (07:57→20:38)
[2021-07-25] MEDS: Famotidine 20 MG TAB PO SCH ×2 (07:57→20:37)
[2021-07-25] MEDS: Gabapentin 300 MG CAP PO SCH ×2 (07:57→20:36)
[2021-07-25] MEDS ORDERED: cefTRIAXone\\ROCEPHIN 1 GM in Sodium Chloride 0.9% 100 ML IVPB SCH (12:15)
[2021-07-25] MEDS: Acetaminophen 325 MG TAB PO PRN (13:03)
[2021-07-25] MEDS: Lurasidone 20 MG TABLET PO SCH (20:37)
[2021-07-25] MEDS: Nortriptyline HCl 25 MG CAP PO SCH (20:37)
[2021-07-25] MEDS: Sulfameth/Trimethoprim DS 800-160mg TAB PO SCH (20:37)
[2021-07-25] MEDS: methylPREDNISolone Sod Succ 1 GM in Sodium Chloride 0.9% 250 ML 250 ML IVPB SCH (20:59)
[2021-07-26] MEDS: HumaLOG 300 UNITS/3 ML VIAL SC PRN ×4 (06:21→21:59)
[2021-07-26] MEDS: levETIRAcetam 500 MG TAB PO SCH ×2 (07:59→21:16)
[2021-07-26] MEDS: Gabapentin 300 MG CAP PO SCH ×2 (07:59→21:15)
[2021-07-26] MEDS: Morphine 2 MG/ML VIAL SLOW IVP PRN ×2 (07:59→16:36)
[2021-07-26] MEDS: Famotidine 20 MG TAB PO SCH ×2 (08:00→21:15)
[2021-07-26] MEDS: Rivaroxaban 10 MG TAB PO SCH (08:00)
[2021-07-26] MEDS: Sulfameth/Trimethoprim DS 800-160mg TAB PO SCH ×2 (08:00→21:16)
[2021-07-26] MEDS: hydrOXYzine Pamoate 25 mg Capsule PO SCH ×3 (08:00→21:27)
[2021-07-26] MEDS ORDERED: methylPREDNISolone Sod Succ 1 GM in Sodium Chloride 0.9% 250 ML 250 ML IVPB SCH (09:00)
[2021-07-26] MEDS: HYDROcodone/Acetaminophen 5/325 mg Tablet PO PRN ×2 (11:53→21:33)
[2021-07-26] MEDS ORDERED: Labetalol HCl 100 MG/20 ML VIAL SLOW IVP PRN (17:40)
[2021-07-26] MEDS ORDERED: hydrALAZINE 20 MG/ML VIAL SLOW IVP PRN (17:41)
[2021-07-26] MEDS ORDERED: Amlodipine 5 MG TAB PO SCH (17:45)
[2021-07-26] MEDS: Nortriptyline HCl 25 MG CAP PO SCH (21:18)
[2021-07-26] MEDS: Lurasidone 20 MG TABLET PO SCH (21:19)
[2021-07-27] MEDS: HumaLOG 300 UNITS/3 ML VIAL SC PRN ×2 (06:46→12:12)
[2021-07-27] MEDS: Acetaminophen 325 MG TAB PO PRN (06:50)
[2021-07-27] MEDS ORDERED: Amlodipine 5 MG TAB PO SCH (09:00)
[2021-07-27] MEDS: levETIRAcetam 500 MG TAB PO SCH (09:22)
[2021-07-27] MEDS: Gabapentin 300 MG CAP PO SCH (09:22)
[2021-07-27] MEDS: Rivaroxaban 10 MG TAB PO SCH (09:23)
[2021-07-27] MEDS: Famotidine 20 MG TAB PO SCH (09:23)
[2021-07-27] MEDS: Sulfameth/Trimethoprim DS 800-160mg TAB PO SCH (09:23)
[2021-07-27] MEDS ORDERED: Losartan 25 MG TAB PO SCH (10:45)
[2021-07-27 11:49] VITALS: BP 169/103; TEMP 97.7
[2021-07-28] MEDS ORDERED: Losartan 25 MG TAB PO SCH (09:00)
== END 2021-07-27 13:43 | disposition home or self-care (01) | DRG 699 ==
LOC: ERS 14:40 → NEURO 17:56
PROVIDERS: ADMIT Emergency Medicine; ATTEND Emergency Medicine
DX: T83.518A Infection and inflammatory reaction due to other urinary catheter, initial encounter (principal); N39.0 Urinary tract infection, site not specified; G35 Multiple sclerosis; Z20.822 Contact with and (suspected) exposure to COVID-19; F31.9 Bipolar disorder, unspecified; M79.7 Fibromyalgia; F41.9 Anxiety disorder, unspecified; G62.9 Polyneuropathy, unspecified; F44.5 Conversion disorder with seizures or convulsions; N31.9 Neuromuscular dysfunction of bladder, unspecified; F43.10 Post-traumatic stress disorder, unspecified; Y84.6 Urinary catheterization as the cause of abnormal reaction of the patient, or of later complication, without mention of misadventure at the time of the procedure; B96.20 Unspecified Escherichia coli [E. coli] as the cause of diseases classified elsewhere; Z79.01 Long term (current) use of anticoagulants; Z79.899 Other long term (current) drug therapy; Z88.0 Allergy status to penicillin; Z88.8 Allergy status to other drugs, medicaments and biological substances; Z86.711 Personal history of pulmonary embolism; Z85.3 Personal history of malignant neoplasm of breast; Z85.41 Personal history of malignant neoplasm of cervix uteri
CPT/HCPCS: 36415; 36416; 70553; 72158; 80053; 80061; 81001; 85025; 85652; 86140; 87077; 87086; 87186; 96374; 96375; J0696; J1815; J1885; J2060; J2270; J2930; J3010; J3490; J7050; Q0177; U0003; U0005

== ENCOUNTER 2021-08-05 18:09 | Emergency (ER) | payer MEDICARE, MEDICAID ==
[2021-08-05] MEDS ORDERED: HYDROcodone/Acetaminophen 5/325 mg Tablet ONE (19:46)
== END 2021-08-05 21:32 | disposition home or self-care (01) ==
LOC: ERS 18:09
DX: G40.89 Other seizures (principal); S09.90XA Unspecified injury of head, initial encounter; Z86.711 Personal history of pulmonary embolism; Z79.01 Long term (current) use of anticoagulants; Z79.899 Other long term (current) drug therapy; W05.0XXA Fall from non-moving wheelchair, initial encounter
CPT/HCPCS: 70450

== ENCOUNTER 2021-08-07 04:06 | Observation (INO) | payer MEDICARE, OTHER ==
[2021-08-07] MEDS ORDERED: HYDROcodone/Acetaminophen 5/325 mg Tablet ONE (04:30)
[2021-08-07 05:14] LABS: ALT (SGPT) 68 U/L (8-55); AST (SGOT) 40 U/L (5-34); Albumin 3.8 g/dL (3.5-5.0); Alkaline Phosphatase 127 U/L (40-110); Anion Gap 15 mmol/L (10-20); BUN (Urea Nitrogen) 15 mg/dL (7.0-18.7); Bilirubin, Total 0.4 mg/dL (0.2-1.2); CK (CPK) 29 U/L (29-168); Calc. Creatinine Clearance 0 mL/min (70-130); Calcium 9.5 mg/dL (7.8-10.44); Carbon Dioxide 24 mmol/L (22-29); Chloride 101 mmol/L (98-107); Globulin 3.1 g/dL (2.4-3.5); Glucose 156 mg/dL (70-105); Potassium 3.9 mmol/L (3.5-5.1); Protein, Total 6.9 g/dL (6.0-8.3); Sodium 136 mmol/L (136-145)
[2021-08-07 05:15] LABS: Hemoglobin 12.3 g/dL (12.0-16.0); Mean Corpuscular HGB CONC 32.6 g/dL (32.0-36.0); Mean Platelet Volume 6.1 fL (7.4-10.4); Platelet Count 369 thou/uL (130-400); RBC Distribution Width 12.8 % (11.5-14.5); Red Blood Cell (RBC) Count 4.23 mill/uL (4.20-5.40); White Blood Cell (WBC) Count 6.6 thou/uL (4.8-10.8)
[2021-08-07 06:02] LABS: Band 5 % (5-11); Eosinophils 3 % (0-10); Lymphocytes 35 % (21-51); MDiff Complete? YES; Monocytes 3 % (0-10); Neutrophil 52 % (42-75)
[2021-08-07] MEDS ORDERED: Ketorolac Tromethamine 30 MG/ML VIAL ONE (06:39)
[2021-08-07] MEDS ORDERED: hydrALAZINE 20 MG/ML VIAL SLOW IVP PRN (09:14)
[2021-08-07 09:40] VITALS: BMI 37.6
[2021-08-07] MEDS ORDERED: Magnevist 469MG/ML 20 ML VIAL ONE (15:08)
[2021-08-07 15:21] LABS: SARS-CoV-2 PCR by NAA Not Detected (NotDetected)
[2021-08-07] MEDS: Gabapentin 300 MG CAP PO SCH (18:54)
[2021-08-07] MEDS: Acetaminophen 325 MG TAB PO PRN (18:55)
[2021-08-07] MEDS: levETIRAcetam 500 MG TAB PO SCH (20:37)
[2021-08-07] MEDS ORDERED: NORTRIPTYLINE HCL 50 MG PO SCH (21:00)
[2021-08-07] MEDS ORDERED: Nortriptyline HCl 25 MG CAP PO SCH (21:00)
[2021-08-08 05:24] LABS: Eosinophils 1 % (0-10); Hemoglobin 12.9 g/dL (12.0-16.0); Lymphocytes 27 % (21-51); MDiff Complete? YES; Mean Corpuscular HGB CONC 31.5 g/dL (32.0-36.0); Mean Corpuscular Hemoglobin 28.5 pg (27.0-31.0); Mean Corpuscular Volume 90.5 fL (78.0-98.0); Mean Platelet Volume 6.1 fL (7.4-10.4); Monocytes 6 % (0-10); Neutrophil 65 % (42-75); Platelet Count 305 thou/uL (130-400); RBC Distribution Width 13.1 % (11.5-14.5); Red Blood Cell (RBC) Count 4.53 mill/uL (4.20-5.40); White Blood Cell (WBC) Count 5.2 thou/uL (4.8-10.8)
[2021-08-08 05:28] LABS: Anion Gap 20 mmol/L (10-20); BUN (Urea Nitrogen) 12 mg/dL (7.0-18.7); Calc. Creatinine Clearance 111 mL/min (70-130); Calcium 9.9 mg/dL (7.8-10.44); Carbon Dioxide 17 mmol/L (22-29); Chloride 102 mmol/L (98-107); Glucose 143 mg/dL (70-105); Potassium 5.3 mmol/L (3.5-5.1); Sodium 134 mmol/L (136-145)
[2021-08-08 08:03] VITALS: TEMP 97.9
[2021-08-08] MEDS: Gabapentin 300 MG CAP PO SCH (08:51)
[2021-08-08] MEDS: levETIRAcetam 500 MG TAB PO SCH (08:52)
[2021-08-08] MEDS: Acetaminophen 325 MG TAB PO PRN (08:53)
[2021-08-08] MEDS ORDERED: Losartan 25 MG TAB PO SCH (09:00)
[2021-08-08] MEDS ORDERED: Rivaroxaban 10 MG TAB PO SCH (09:00)
[2021-08-08 15:40] VITALS: BP 115/55
== END 2021-08-08 17:30 | disposition home or self-care (01) ==
LOC: ERS 04:06 → 2SW 07:21
PROVIDERS: ADMIT Hospitalist; ATTEND Hospitalist
DX: G35 Multiple sclerosis (principal); R10.13 Epigastric pain; N31.9 Neuromuscular dysfunction of bladder, unspecified; I10 Essential (primary) hypertension; G40.909 Epilepsy, unspecified, not intractable, without status epilepticus; G62.9 Polyneuropathy, unspecified; M79.7 Fibromyalgia; F15.11 Other stimulant abuse, in remission; Z85.3 Personal history of malignant neoplasm of breast; Z85.41 Personal history of malignant neoplasm of cervix uteri; Z86.711 Personal history of pulmonary embolism; Z79.01 Long term (current) use of anticoagulants; Z79.899 Other long term (current) drug therapy; Z88.0 Allergy status to penicillin; Z88.8 Allergy status to other drugs, medicaments and biological substances; Z20.822 Contact with and (suspected) exposure to COVID-19
CPT/HCPCS: 70450; 70553; 80048; 80053; 82550; 85025 ×2; 93005; 96374; 99285; U0003; U0005; 36415; A9579; G0378; J1885

== ENCOUNTER 2021-08-29 12:20 | Outpatient (CLI) | payer OTHER, MEDICAID | END 2021-08-29 12:21 | disposition home or self-care (01) | LOC: MRI 12:20 | PROVIDERS: ATTEND Psychiatry & Neurology Neurology | DX: G35 Multiple sclerosis (principal); M50.322 Other cervical disc degeneration at C5-C6 level; M47.814 Spondylosis without myelopathy or radiculopathy, thoracic region | CPT/HCPCS: 72156; 72157 ==

== ENCOUNTER 2021-10-07 11:10 | Emergency (ER) | payer OTHER, MEDICAID ==
[2021-10-07] MEDS ORDERED: Acetaminophen 500 MG TAB ONE (12:36)
== END 2021-10-07 13:15 | disposition home or self-care (01) ==
LOC: ERS 11:10
DX: S05.11XA Contusion of eyeball and orbital tissues, right eye, initial encounter (principal); S50.311A Abrasion of right elbow, initial encounter; S80.211A Abrasion, right knee, initial encounter; S50.312A Abrasion of left elbow, initial encounter; G40.909 Epilepsy, unspecified, not intractable, without status epilepticus; Z86.711 Personal history of pulmonary embolism; Z79.01 Long term (current) use of anticoagulants; Z79.899 Other long term (current) drug therapy; W18.39XA Other fall on same level, initial encounter; Y93.01 Activity, walking, marching and hiking
CPT/HCPCS: 70450; 72125

== ENCOUNTER 2022-01-08 14:19 | Emergency (ER) | payer MEDICAID, OTHER ==
[2022-01-08 14:45] LABS: #Basophils 0.2 thou/uL (0.0-0.2); #Eosinphils 0.5 thou/uL (0.0-0.7); #Lymphocytes 2.8 thou/uL (1.20-3.40); #Monocytes 0.4 thou/uL (0.11-0.59); #Neutrophils 2.2 thou/uL (1.40-6.50); %Basophils 2.5 % (0.0-1.0); %Eosinophils 8.8 % (0.0-10.0); %Lymphocytes 45.9 % (21.0-51.0); %Monocytes 7.1 % (0.0-10.0); %Neutrophils 35.7 % (42.0-75.0); Hemoglobin 10.4 g/dL (12.0-16.0); Mean Corpuscular HGB CONC 32.3 g/dL (32.0-36.0); Mean Corpuscular Hemoglobin 26.5 pg (27.0-31.0); Mean Platelet Volume 6.7 fL (7.4-10.4); Platelet Count 356 thou/uL (130-400); RBC Distribution Width 15.3 % (11.5-14.5); Red Blood Cell (RBC) Count 3.92 mill/uL (4.20-5.40); White Blood Cell (WBC) Count 6.2 thou/uL (4.8-10.8)
[2022-01-08 15:12] LABS: ALT (SGPT) 38 U/L (8-55); AST (SGOT) 39 U/L (5-34); Albumin 3.9 g/dL (3.5-5.0); Alkaline Phosphatase 101 U/L (40-110); Anion Gap 10 mmol/L (10-20); BUN (Urea Nitrogen) 10 mg/dL (7.0-18.7); Bilirubin, Total 0.6 mg/dL (0.2-1.2); Calc. Creatinine Clearance 0 mL/min (70-130); Calcium 8.9 mg/dL (7.8-10.44); Carbon Dioxide 30 mmol/L (22-29); Chloride 105 mmol/L (98-107); Estimated GFR 61; Globulin 2.8 g/dL (2.4-3.5); Glucose 109 mg/dL (70-105); Potassium 3.6 mmol/L (3.5-5.1); Protein, Total 6.7 g/dL (6.0-8.3); Sodium 141 mmol/L (136-145)
[2022-01-08] MEDS ORDERED: Meclizine HCl 25 MG TAB ONE (17:56)
== END 2022-01-08 18:51 | disposition home or self-care (01) ==
LOC: ERS 14:19
DX: S09.90XA Unspecified injury of head, initial encounter (principal); R42 Dizziness and giddiness; I10 Essential (primary) hypertension; W18.09XA Striking against other object with subsequent fall, initial encounter
CPT/HCPCS: 36415; 70450; 71045; 80053; 85025; 93005

== ENCOUNTER 2022-05-07 08:27 | Inpatient (IN) | payer OTHER ==
[2022-05-07 09:22] LABS: #Basophils 0.2 thou/uL (0.0-0.2); #Eosinphils 0.5 thou/uL (0.0-0.7); #Lymphocytes 3.4 thou/uL (1.20-3.40); #Monocytes 0.6 thou/uL (0.11-0.59); #Neutrophils 3.5 thou/uL (1.40-6.50); %Basophils 2.6 % (0.0-1.0); %Eosinophils 5.7 % (0.0-10.0); %Lymphocytes 41.5 % (21.0-51.0); %Monocytes 7.8 % (0.0-10.0); %Neutrophils 42.5 % (42.0-75.0); Hemoglobin 12.1 g/dL (12.0-16.0); Mean Corpuscular HGB CONC 32.4 g/dL (32.0-36.0); Mean Corpuscular Hemoglobin 26.3 pg (27.0-31.0); Mean Corpuscular Volume 81.2 fl (78.0-98.0); Mean Platelet Volume 6.5 fL (7.4-10.4); Platelet Count 447 10x3/uL (130-400); RBC Distribution Width 14.2 % (11.5-14.5); Red Blood Cell (RBC) Count 4.62 mill/uL (4.20-5.40); White Blood Cell (WBC) Count 8.2 10x3/uL (4.8-10.8)
[2022-05-07] MEDS ORDERED: Ondansetron PF 4 MG/2 ML Vial ONE (09:33)
[2022-05-07 09:39] LABS: ALT (SGPT) 51 U/L (8-55); AST (SGOT) 51 U/L (5-34); Albumin 4.2 g/dL (3.5-5.0); Alkaline Phosphatase 126 U/L (40-110); Anion Gap 10 mmol/L (10-20); BUN (Urea Nitrogen) 13 mg/dL (9.8-20.1); Bilirubin, Total 0.4 mg/dL (0.2-1.2); Calc. Creatinine Clearance 0 mL/min (70-130); Calcium 9.4 mg/dL (7.8-10.44); Carbon Dioxide 31 mmol/L (22-29); Chloride 100 mmol/L (98-107); Estimated GFR 65; Globulin 3.3 g/dL (2.4-3.5); Glucose 115 mg/dL (70-105); Potassium 3.2 mmol/L (3.5-5.1); Protein, Total 7.5 g/dL (6.0-8.3); Sodium 138 mmol/L (136-145)
[2022-05-07] MEDS ORDERED: methylPREDNISolone Sod Succ 1 GM in Sodium Chloride 0.9% 250 ML 250 ML IVPB SCH (11:00)
[2022-05-07] MEDS ORDERED: methylPREDNISolone Sod Succ 1 GM in Sodium Chloride 0.9% 100 ML IVPB SCH (11:00)
[2022-05-07] MEDS ORDERED: Pantoprazole 40 MG VIAL ONE (11:14)
[2022-05-07 11:31] LABS: Bilirubin Negative (Negative); Blood, Urine Negative (Negative); Clarity Clear (Clear); Glucose, Urine (Dipstick) Normal (Negative); Ketone, Urine Negative (Negative); Leukocyte Negative Leu/uL (Negative); Nitrite Negative (Negative); Protein, Urine (Dipstick) Negative (Neg-Trace); Specific Gravity, Urine 1.007 (1.002-1.036); Urobilinogen Normal mg/dL (Less than 2); pH, Urine 6.5 (5.0-9.0)
[2022-05-07] MEDS ORDERED: Acetaminophen 500 MG TAB ONE (12:21)
[2022-05-07] MEDS ORDERED: Potassium Chloride 20 MEQ TAB PO SCH (12:54)
[2022-05-07 13:17] LABS: Troponin I Less than 0.010 ng/mL (< 0.028)
[2022-05-07 13:50] LABS: Magnesium 1.6 mg/dL (1.6-2.6)
[2022-05-07] MEDS ORDERED: Acetaminophen 325 MG TAB ONE (13:51)
[2022-05-07] MEDS: Acetaminophen 325 MG TAB PO PRN ×2 (13:53→20:42)
[2022-05-07] MEDS ORDERED: Potassium Chloride 20 MEQ TAB ONE (14:02)
[2022-05-07] MEDS: Sodium Chloride 0.9% 1,000 ML IV SCH (14:06)
[2022-05-07] MEDS ORDERED: traMADol HCl 50 MG TAB ONE (16:11)
[2022-05-07] MEDS: traMADol HCl 50 MG TAB PO PRN (16:13)
[2022-05-07 17:11] LABS: Troponin I Less than 0.010 ng/mL (< 0.028)
[2022-05-07 19:15] VITALS: BMI 37.7
[2022-05-07] MEDS: Gabapentin 400 MG CAP PO SCH (20:36)
[2022-05-07] MEDS: levETIRAcetam 500 MG TAB PO SCH (20:38)
[2022-05-07] MEDS ORDERED: Lurasidone 40 MG TAB PO SCH (21:00)
[2022-05-08] MEDS: Acetaminophen 325 MG TAB PO PRN (03:55)
[2022-05-08] MEDS: Sodium Chloride 0.9% 1,000 ML IV SCH (03:55)
[2022-05-08 06:24] LABS: #Basophils 0.1 thou/uL (0.0-0.2); #Lymphocytes 2.3 thou/uL (1.20-3.40); #Monocytes 0.1 thou/uL (0.11-0.59); #Neutrophils 13.7 thou/uL (1.40-6.50); %Basophils 0.8 % (0.0-1.0); %Eosinophils 0.1 % (0.0-10.0); %Lymphocytes 13.9 % (21.0-51.0); %Monocytes 0.8 % (0.0-10.0); %Neutrophils 84.3 % (42.0-75.0); Hemoglobin 11.5 g/dL (12.0-16.0); Mean Corpuscular HGB CONC 32.9 g/dL (32.0-36.0); Mean Corpuscular Hemoglobin 26.4 pg (27.0-31.0); Mean Corpuscular Volume 80.3 fl (78.0-98.0); Mean Platelet Volume 6.9 fL (7.4-10.4); Platelet Count 424 10x3/uL (130-400); RBC Distribution Width 14.1 % (11.5-14.5); Red Blood Cell (RBC) Count 4.34 mill/uL (4.20-5.40); White Blood Cell (WBC) Count 16.2 10x3/uL (4.8-10.8)
[2022-05-08 06:42] LABS: Anion Gap 12 mmol/L (10-20); BUN (Urea Nitrogen) 13 mg/dL (9.8-20.1); Calc. Creatinine Clearance 115 mL/min (70-130); Calcium 9.1 mg/dL (7.8-10.44); Carbon Dioxide 25 mmol/L (22-29); Chloride 99 mmol/L (98-107); Estimated GFR 85; Glucose 203 mg/dL (70-105); Potassium 3.8 mmol/L (3.5-5.1); Sodium 132 mmol/L (136-145)
[2022-05-08] MEDS: Gabapentin 400 MG CAP PO SCH ×2 (10:05→20:34)
[2022-05-08] MEDS: traMADol HCl 50 MG TAB PO PRN (10:08)
[2022-05-08] MEDS: Rivaroxaban 10 MG TAB PO SCH (10:10)
[2022-05-08] MEDS: levETIRAcetam 500 MG TAB PO SCH ×2 (10:10→20:34)
[2022-05-08] MEDS: hydrOXYzine Pamoate 25 mg Capsule PO SCH (10:10)
[2022-05-08] MEDS: Losartan 25 MG TAB PO SCH (10:10)
[2022-05-08] MEDS ORDERED: Magnevist 469MG/ML 20 ML VIAL ONE ×2 (10:52)
[2022-05-08] MEDS ORDERED: methylPREDNISolone Sod Succ/PF 1,000 MG in Sodium Chloride 0.9% 250 ML 250 ML IVPB SCH (13:00)
[2022-05-08] MEDS: methylPREDNISolone Sod Succ/PF 1,000 MG in Sodium Chloride 0.9% 250 ML 250 ML IVPB SCH (13:37)
[2022-05-08] MEDS: Morphine 2 MG/ML VIAL SLOW IVP PRN ×3 (13:37→23:47)
[2022-05-08] MEDS ORDERED: Lurasidone 20 MG TABLET PO SCH (21:00)
[2022-05-09] MEDS: levETIRAcetam 500 MG TAB PO SCH (08:17)
[2022-05-09] MEDS: hydrOXYzine Pamoate 25 mg Capsule PO SCH (08:17)
[2022-05-09] MEDS: Rivaroxaban 10 MG TAB PO SCH (08:17)
[2022-05-09] MEDS: Losartan 25 MG TAB PO SCH (08:17)
[2022-05-09] MEDS: Gabapentin 400 MG CAP PO SCH (08:18)
[2022-05-09] MEDS: Morphine 2 MG/ML VIAL SLOW IVP PRN ×2 (08:18→12:37)
[2022-05-09] MEDS: methylPREDNISolone Sod Succ/PF 1,000 MG in Sodium Chloride 0.9% 250 ML 250 ML IVPB SCH (11:53)
[2022-05-09] MEDS ORDERED: Ibuprofen 600 MG TAB PO SCH (13:15)
[2022-05-09] MEDS ORDERED: Ibuprofen 600 MG TAB PO PRN ×3 (14:15→20:00)
[2022-05-09 15:44] VITALS: BP 127/75; TEMP 97.4
[2022-05-11] MEDS ORDERED: FLU VACC QS2022-23(6MOS UP)/PF 60 MCG/0.5 ML SYRINGE IM ONE (04:15)
== END 2022-05-09 17:45 | disposition home or self-care (01) | DRG 60 ==
LOC: ERS 08:27 → ERHOLD 11:21 → NEURO 18:06 → OBSVTOIN 05-08 11:18
PROVIDERS: ADMIT Family Medicine; ATTEND Internal Medicine
DX: G35 Multiple sclerosis (principal); N31.9 Neuromuscular dysfunction of bladder, unspecified; F31.9 Bipolar disorder, unspecified; F43.10 Post-traumatic stress disorder, unspecified; G40.909 Epilepsy, unspecified, not intractable, without status epilepticus; G62.9 Polyneuropathy, unspecified; K21.9 Gastro-esophageal reflux disease without esophagitis; R73.9 Hyperglycemia, unspecified; T38.0X5A Adverse effect of glucocorticoids and synthetic analogues, initial encounter; K59.09 Other constipation; E87.6 Hypokalemia; G89.29 Other chronic pain; Z86.711 Personal history of pulmonary embolism; Z90.710 Acquired absence of both cervix and uterus; Z88.0 Allergy status to penicillin; Z88.8 Allergy status to other drugs, medicaments and biological substances; Z79.899 Other long term (current) drug therapy; Z85.3 Personal history of malignant neoplasm of breast; Z85.41 Personal history of malignant neoplasm of cervix uteri
CPT/HCPCS: 36415; 51702; 70450; 70553; 71045; 72125; 72156; 80048; 80053; 81003; 83735; 84484; 85025; 87086; 93005; 95712; 95819; 95957; 96365; 96375; 97139; A9579; C9113; G0378; J2272; J2405; J2930; J3490; J7050; Q0177; U0003; U0005

== ENCOUNTER 2022-09-30 14:27 | Emergency (ER) | payer OTHER, SELFPAY ==
[2022-09-30 15:13] LABS: #Basophils 0.1 thou/uL (0.0-0.2); #Eosinphils 0.4 thou/uL (0.0-0.7); #Monocytes 0.8 thou/uL (0.11-0.59); %Basophils 0.7 % (0.0-1.0); %Lymphocytes 42.6 % (21.0-51.0); %Monocytes 10.3 % (0.0-10.0); %Neutrophils 40.3 % (42.0-75.0); Hemoglobin 11.1 g/dL (12.0-16.0); Mean Corpuscular HGB CONC 31.8 g/dL (32.0-36.0); Mean Corpuscular Hemoglobin 24.8 pg (27.0-31.0); Mean Corpuscular Volume 78.1 fl (78.0-98.0); Mean Platelet Volume 8.6 fL (7.4-10.4); Platelet Count 368 10x3/uL (130-400); RBC Distribution Width 15.6 % (11.5-14.5); Red Blood Cell (RBC) Count 4.47 mill/uL (4.20-5.40); White Blood Cell (WBC) Count 7.4 10x3/uL (4.8-10.8)
[2022-09-30 15:36] LABS: ALT (SGPT) 45 U/L (8-55); AST (SGOT) 54 U/L (5-34); Albumin 3.9 g/dL (3.5-5.0); Alkaline Phosphatase 127 U/L (40-110); Anion Gap 14 mmol/L (10-20); BUN (Urea Nitrogen) 9 mg/dL (9.8-20.1); Bilirubin, Total 0.4 mg/dL (0.2-1.2); Calc. Creatinine Clearance 0 mL/min (70-130); Calcium 9.3 mg/dL (7.8-10.44); Carbon Dioxide 27 mmol/L (22-29); Chloride 100 mmol/L (98-107); Estimated GFR 74; Globulin 2.9 g/dL (2.4-3.5); Glucose 102 mg/dL (70-105); Potassium 3.3 mmol/L (3.5-5.1); Protein, Total 6.8 g/dL (6.0-8.3); Sodium 138 mmol/L (136-145)
[2022-09-30 15:38] LABS: INR-International Normal Ratio 1.7
[2022-09-30 15:39] LABS: PTT 46.2 sec (22.9-36.1)
[2022-09-30 16:00] LABS: Magnesium 1.5 mg/dL (1.6-2.6)
[2022-09-30] MEDS ORDERED: Potassium Chloride 20 MEQ TAB ONE (17:07)
[2022-09-30] MEDS ORDERED: Magnesium 2 GM/50 ML BAG (IN WATER) ONE (17:07)
== END 2022-09-30 18:50 | disposition home or self-care (01) ==
LOC: ERS 14:27
DX: S73.102A Unspecified sprain of left hip, initial encounter (principal); S09.90XA Unspecified injury of head, initial encounter; E87.6 Hypokalemia; E83.42 Hypomagnesemia; I10 Essential (primary) hypertension; Z87.891 Personal history of nicotine dependence; Z79.01 Long term (current) use of anticoagulants; Z79.899 Other long term (current) drug therapy; W18.30XA Fall on same level, unspecified, initial encounter
CPT/HCPCS: 36415; 70450; 71045; 72125; 80053; 83735; 85025; 85610; 85730; 93005; 96365; J3475

== ENCOUNTER 2023-01-05 15:31 | Inpatient (IN) | payer OTHER ==
[2023-01-05] MEDS ORDERED: methylPREDNISolone Sod Succ/PF 125 MG/2 ML VIAL ONE (16:03)
[2023-01-05] MEDS ORDERED: Boostrix 0.5 ML (Tdap) VIAL (>/=7 yrs of age) ONE (16:04)
[2023-01-05] MEDS ORDERED: Morphine 2 MG/ML VIAL ONE ×2 (16:13→20:06)
[2023-01-05] MEDS ORDERED: methylPREDNISolone Sod Succ 1 GM in Sodium Chloride 0.9% 100 ML IVPB SCH (16:15)
[2023-01-05 16:39] LABS: #Eosinphils 0.5 thou/uL (0.0-0.7); #Monocytes 0.6 thou/uL (0.11-0.59); #Neutrophils 4.3 thou/uL (1.40-6.50); %Basophils 0.4 % (0.0-1.0); %Eosinophils 5.8 % (0.0-10.0); %Lymphocytes 32.3 % (21.0-51.0); %Monocytes 6.9 % (0.0-10.0); %Neutrophils 54.3 % (42.0-75.0); Hematocrit 29.5 % (36.0-47.0); Hemoglobin 9.5 g/dL (12.0-16.0); Mean Corpuscular HGB CONC 32.2 g/dL (32.0-36.0); Mean Corpuscular Hemoglobin 24.2 pg (27.0-31.0); Mean Corpuscular Volume 75.1 fl (78.0-98.0); Mean Platelet Volume 8.9 fL (7.4-10.4); Platelet Count 331 10x3/uL (130-400); RBC Distribution Width 15.2 % (11.5-14.5); Red Blood Cell (RBC) Count 3.93 mill/uL (4.20-5.40)
[2023-01-05 17:06] LABS: Troponin I Less than 0.010 ng/mL (< 0.028)
[2023-01-05 17:07] LABS: ALT (SGPT) 35 U/L (8-55); AST (SGOT) 45 U/L (5-34); Albumin 3.9 g/dL (3.5-5.0); Alkaline Phosphatase 132 U/L (40-110); Anion Gap 13 mmol/L (10-20); BUN (Urea Nitrogen) 11 mg/dL (9.8-20.1); Bilirubin, Total 0.7 mg/dL (0.2-1.2); CK (CPK) 110 U/L (29-168); Calc. Creatinine Clearance 0 mL/min (70-130); Calcium 8.4 mg/dL (7.8-10.44); Carbon Dioxide 30 mmol/L (22-29); Chloride 102 mmol/L (98-107); Estimated GFR 61; Globulin 2.4 g/dL (2.4-3.5); Glucose 103 mg/dL (70-105); Lipase 24 U/L (8-78); Potassium 3.1 mmol/L (3.5-5.1); Protein, Total 6.3 g/dL (6.0-8.3); Sodium 142 mmol/L (136-145)
[2023-01-05 17:10] LABS: Bacteria/HPF 2+ HPF (None Seen); Bilirubin Negative (Negative); Blood, Urine Negative (Negative); CAUTI Indications for Culture Dysuria,urgency,freq; Clarity Turbid (Clear); Glucose, Urine (Dipstick) Normal (Negative); Ketone, Urine Negative (Negative); Leukocyte 500 Leu/uL (Negative); Nitrite Negative (Negative); Protein, Urine (Dipstick) Negative (Neg-Trace); RBC/HPF 0-3 HPF (0-3); Specific Gravity, Urine 1.013 (1.002-1.036); Squamous Epithelial 0-3 HPF (0-3); Urobilinogen Normal mg/dL (Less than 2)
[2023-01-05 17:11] LABS: Urine Culture Reflex Yes Yes
[2023-01-05 17:17] LABS: Magnesium 0.9 mg/dL (1.6-2.6)
[2023-01-05] MEDS ORDERED: Potassium Bicarbonate/Cit Ac 20 MEQ TAB ONE (17:24)
[2023-01-05] MEDS ORDERED: Potassium Chloride 20 MEQ TAB ONE (17:25)
[2023-01-05] MEDS ORDERED: Magnesium 2 GM/50 ML BAG (IN WATER) ONE ×2 (17:26→19:57)
[2023-01-05] MEDS ORDERED: Lorazepam 2 MG/ML VIAL SLOW IVP PRN (19:48)
[2023-01-05] MEDS ORDERED: Metoclopramide HCl 10 MG/2 ML VIAL IVP PRN (19:48)
[2023-01-05] MEDS ORDERED: Acetaminophen 325 MG TAB PO PRN (19:48)
[2023-01-05] MEDS: cefTRIAXone\\ROCEPHIN 1 GM in Sodium Chloride 0.9% 100 ML IVPB SCH (22:38)
[2023-01-05] MEDS ORDERED: GLATIRAMER ACETATE 40 MG/ML SC SCH (23:45)
[2023-01-06 00:01] VITALS: BMI 35.0
[2023-01-06 00:47] LABS: Anion Gap 12 mmol/L (10-20); BUN (Urea Nitrogen) 10 mg/dL (9.8-20.1); Calc. Creatinine Clearance 109 mL/min (70-130); Calcium 8.4 mg/dL (7.8-10.44); Carbon Dioxide 29 mmol/L (22-29); Chloride 98 mmol/L (98-107); Estimated GFR 73; Glucose 252 mg/dL (70-105); Magnesium 1.8 mg/dL (1.6-2.6); Potassium 3.2 mmol/L (3.5-5.1); Sodium 136 mmol/L (136-145)
[2023-01-06] MEDS ORDERED: Potassium Chloride 20 MEQ TAB PO SCH (01:00)
[2023-01-06] MEDS: Morphine 2 MG/ML VIAL SLOW IVP PRN ×3 (04:14→20:23)
[2023-01-06 05:41] LABS: %Basophils 0.2 % (0.0-1.0); %Lymphocytes 18.8 % (21.0-51.0); %Monocytes 0.3 % (0.0-10.0); %Neutrophils 80.2 % (42.0-75.0); Hematocrit 31.5 % (36.0-47.0); Hemoglobin 10.1 g/dL (12.0-16.0); Mean Corpuscular HGB CONC 32.1 g/dL (32.0-36.0); Mean Corpuscular Hemoglobin 23.8 pg (27.0-31.0); Mean Corpuscular Volume 74.1 fl (78.0-98.0); Mean Platelet Volume 9.2 fL (7.4-10.4); Platelet Count 330 10x3/uL (130-400); RBC Distribution Width 15.2 % (11.5-14.5); Red Blood Cell (RBC) Count 4.25 mill/uL (4.20-5.40); White Blood Cell (WBC) Count 6.3 10x3/uL (4.8-10.8)
[2023-01-06 06:08] LABS: Iron Binding Capacity, Total 258 mcg/dL (265-497)
[2023-01-06 06:09] LABS: Iron 61 ug/dL (50-170)
[2023-01-06 06:19] LABS: Anion Gap 16 mmol/L (10-20); BUN (Urea Nitrogen) 9 mg/dL (9.8-20.1); Calc. Creatinine Clearance 120 mL/min (70-130); Calcium 8.3 mg/dL (7.8-10.44); Carbon Dioxide 25 mmol/L (22-29); Chloride 100 mmol/L (98-107); Estimated GFR 82; Glucose 211 mg/dL (70-105); Iron 56 ug/dL (50-170); Iron Binding Capacity, Total 253 mcg/dL (265-497); Potassium 3.4 mmol/L (3.5-5.1); Sodium 138 mmol/L (136-145)
[2023-01-06 08:02] LABS: CellaVision Operator ID LAB.CMB; Large Platelets 6.7 % (0-5); Macrocytosis SLIGHT = 6-15 cells HPF (0-5); Ovalocytes SLIGHT = 2-5 cells HPF (0-1); Platelet Adequacy Comment Platelets Normal; Polychromasia SLIGHT = 2-3 cells HPF (0-2); Target Cells SLIGHT = 2-5 cells HPF (0-1)
[2023-01-06] MEDS: Rivaroxaban 10 MG TAB PO SCH (08:35)
[2023-01-06] MEDS: levETIRAcetam 500 MG TAB PO SCH ×2 (08:35→20:22)
[2023-01-06] MEDS: Gabapentin 300 MG CAP PO SCH ×2 (08:35→17:19)
[2023-01-06] MEDS: Losartan 25 MG TAB PO SCH (08:35)
[2023-01-06] MEDS ORDERED: methylPREDNISolone Sod Succ 1 GM in Sodium Chloride 0.9% 100 ML IVPB SCH (17:00)
[2023-01-07] MEDS: cefTRIAXone\\ROCEPHIN 1 GM in Sodium Chloride 0.9% 100 ML IVPB SCH (00:58)
[2023-01-07] MEDS ORDERED: cefTRIAXone\\ROCEPHIN 1 GM in Sodium Chloride 0.9% 100 ML IVPB SCH (01:00)
[2023-01-07 05:44] LABS: #Monocytes 0.2 thou/uL (0.11-0.59); #Neutrophils 13.6 thou/uL (1.40-6.50); %Basophils 0.1 % (0.0-1.0); %Monocytes 1.3 % (0.0-10.0); %Neutrophils 87.2 % (42.0-75.0); Hematocrit 29.8 % (36.0-47.0); Hemoglobin 9.9 g/dL (12.0-16.0); Mean Corpuscular HGB CONC 33.2 g/dL (32.0-36.0); Mean Corpuscular Hemoglobin 24.3 pg (27.0-31.0); Mean Platelet Volume 9.2 fL (7.4-10.4); Platelet Count 356 10x3/uL (130-400); RBC Distribution Width 15.1 % (11.5-14.5); Red Blood Cell (RBC) Count 4.08 mill/uL (4.20-5.40); White Blood Cell (WBC) Count 15.6 10x3/uL (4.8-10.8)
[2023-01-07 06:20] LABS: Anion Gap 16 mmol/L (10-20); BUN (Urea Nitrogen) 12 mg/dL (9.8-20.1); Calc. Creatinine Clearance 123 mL/min (70-130); Calcium 8.8 mg/dL (7.8-10.44); Carbon Dioxide 26 mmol/L (22-29); CellaVision Operator ID lab.abc; Chloride 94 mmol/L (98-107); Estimated GFR 84; Glucose 179 mg/dL (70-105); Hypochromia SLIGHT = 6-15 cells HPF (0-5); Magnesium 1.5 mg/dL (1.6-2.6); Microcytosis SLIGHT = 6-15 cells HPF (0-5); Platelet Adequacy Comment Platelets Normal; Polychromasia SLIGHT = 2-3 cells HPF (0-2); Potassium 3.2 mmol/L (3.5-5.1); Smudge Cells 8.9 %; Sodium 133 mmol/L (136-145)
[2023-01-07] MEDS ORDERED: Potassium Bicarbonate/Cit Ac 20 MEQ TAB PO SCH (08:00)
[2023-01-07] MEDS: Gabapentin 300 MG CAP PO SCH (10:10)
[2023-01-07] MEDS: levETIRAcetam 500 MG TAB PO SCH (10:11)
[2023-01-07] MEDS: Rivaroxaban 10 MG TAB PO SCH (10:11)
[2023-01-07] MEDS: Losartan 25 MG TAB PO SCH (10:11)
[2023-01-07 11:27] VITALS: TEMP 98.5
[2023-01-07 12:08] VITALS: BP 136/74
[2023-01-07] MEDS ORDERED: methylPREDNISolone Sod Succ 1 GM in Sodium Chloride 0.9% 250 ML 250 ML IVPB SCH ×2 (13:00→17:00)
== END 2023-01-07 16:26 | disposition home health service (06) | DRG 60 ==
LOC: ERS 15:31 → 2SW 19:48
PROVIDERS: ADMIT Physician Assistant; ATTEND Hospitalist
DX: G35 Multiple sclerosis (principal); E83.42 Hypomagnesemia; E87.6 Hypokalemia; N31.9 Neuromuscular dysfunction of bladder, unspecified; I89.0 Lymphedema, not elsewhere classified; F31.9 Bipolar disorder, unspecified; F41.9 Anxiety disorder, unspecified; F43.10 Post-traumatic stress disorder, unspecified; R82.71 Bacteriuria; G62.9 Polyneuropathy, unspecified; F44.5 Conversion disorder with seizures or convulsions; Z85.3 Personal history of malignant neoplasm of breast; Z88.0 Allergy status to penicillin; Z88.8 Allergy status to other drugs, medicaments and biological substances; Z79.899 Other long term (current) drug therapy; Z90.710 Acquired absence of both cervix and uterus; Z90.13 Acquired absence of bilateral breasts and nipples; Z98.890 Other specified postprocedural states; Z85.41 Personal history of malignant neoplasm of cervix uteri
CPT/HCPCS: 36415; 51701; 70450; 71045; 72125; 80048; 80053; 81001; 82550; 82728; 83540; 83550; 83690; 83735; 83880; 84100; 84484; 85025; 87077; 87086; 87186; 90471; 90715; 93005; 93010; 94760; 96365; 96367; 96375; 96376; J0696; J2272; J2930; J3475; J3490; J7050

== ENCOUNTER 2023-02-20 06:36 | Emergency (ER) | payer OTHER ==
[2023-02-20] MEDS ORDERED: Ondansetron PF 4 MG/2 ML Vial ONE (07:05)
[2023-02-20 07:53] LABS: #Eosinphils 0.2 thou/uL (0.0-0.7); #Monocytes 0.8 thou/uL (0.11-0.59); #Neutrophils 7.1 thou/uL (1.40-6.50); %Basophils 0.2 % (0.0-1.0); %Eosinophils 1.9 % (0.0-10.0); %Lymphocytes 22.3 % (21.0-51.0); %Monocytes 7.2 % (0.0-10.0); %Neutrophils 67.9 % (42.0-75.0); Hematocrit 33.1 % (36.0-47.0); Hemoglobin 10.9 g/dL (12.0-16.0); Mean Corpuscular HGB CONC 32.9 g/dL (32.0-36.0); Mean Corpuscular Hemoglobin 25.1 pg (27.0-31.0); Mean Corpuscular Volume 76.1 fl (78.0-98.0); Mean Platelet Volume 8.9 fL (7.4-10.4); Platelet Count 402 10x3/uL (130-400); RBC Distribution Width 16.9 % (11.5-14.5); Red Blood Cell (RBC) Count 4.35 mill/uL (4.20-5.40); White Blood Cell (WBC) Count 10.5 10x3/uL (4.8-10.8)
[2023-02-20] MEDS ORDERED: Meclizine HCl 25 MG TAB ONE (07:55)
[2023-02-20 08:13] LABS: ALT (SGPT) 52 U/L (8-55); AST (SGOT) 77 U/L (5-34); Albumin 3.8 g/dL (3.5-5.0); Alkaline Phosphatase 152 U/L (40-110); Anion Gap 14 mmol/L (10-20); BUN (Urea Nitrogen) 12 mg/dL (9.8-20.1); Bilirubin, Total 0.3 mg/dL (0.2-1.2); Calc. Creatinine Clearance 0 mL/min (70-130); Calcium 9.5 mg/dL (7.8-10.44); Carbon Dioxide 29 mmol/L (22-29); Chloride 99 mmol/L (98-107); Estimated GFR 67; Globulin 3.2 g/dL (2.4-3.5); Glucose 113 mg/dL (70-105); Potassium 3.4 mmol/L (3.5-5.1); Sodium 139 mmol/L (136-145)
== END 2023-02-20 09:01 | disposition home or self-care (01) ==
LOC: ERS 06:36
DX: S00.03XA Contusion of scalp, initial encounter (principal); W01.10XA Fall on same level from slipping, tripping and stumbling with subsequent striking against unspecified object, initial encounter; I10 Essential (primary) hypertension; Z79.899 Other long term (current) drug therapy; Z86.711 Personal history of pulmonary embolism; Z79.01 Long term (current) use of anticoagulants
CPT/HCPCS: 70450; 72125; 80053; 85025; 93005; 96374; J2405

== ENCOUNTER 2023-04-22 19:05 | Emergency (ER) | payer OTHER ==
[2023-04-22 19:36] LABS: #Basophils 0.1 thou/uL (0.0-0.2); #Monocytes 0.1 thou/uL (0.11-0.59); #Neutrophils 13.6 thou/uL (1.40-6.50); %Basophils 0.5 % (0.0-1.0); %Eosinophils 0.3 % (0.0-10.0); %Lymphocytes 10.2 % (21.0-51.0); %Monocytes 0.6 % (0.0-10.0); %Neutrophils 87.3 % (42.0-75.0); Hematocrit 41.2 % (36.0-47.0); Hemoglobin 13.4 g/dL (12.0-16.0); Mean Corpuscular HGB CONC 32.5 g/dL (32.0-36.0); Mean Corpuscular Hemoglobin 24.4 pg (27.0-31.0); Mean Platelet Volume 8.1 fL (7.4-10.4); Platelet Count 397 10x3/uL (130-400); RBC Distribution Width 14.8 % (11.5-14.5); Red Blood Cell (RBC) Count 5.49 mill/uL (4.20-5.40); White Blood Cell (WBC) Count 15.6 10x3/uL (4.8-10.8)
[2023-04-22 20:02] LABS: ALT (SGPT) 54 U/L (8-55); AST (SGOT) 78 U/L (5-34); Alkaline Phosphatase 170 U/L (40-110); Anion Gap 15 mmol/L (10-20); BUN (Urea Nitrogen) 17 mg/dL (9.8-20.1); Bilirubin, Total 0.4 mg/dL (0.2-1.2); Calc. Creatinine Clearance 0 mL/min (70-130); Calcium 9.6 mg/dL (7.8-10.44); Carbon Dioxide 29 mmol/L (22-29); Chloride 96 mmol/L (98-107); Estimated GFR 49; Globulin 3.3 g/dL (2.4-3.5); Glucose 143 mg/dL (70-105); Potassium 3.1 mmol/L (3.5-5.1); Protein, Total 7.3 g/dL (6.0-8.3); Sodium 137 mmol/L (136-145)
[2023-04-22] MEDS ORDERED: Acetaminophen 500 MG TAB ONE (20:46)
[2023-04-22] MEDS ORDERED: Ibuprofen 200 MG TAB ONE (20:46)
[2023-04-22 21:43] LABS: Bacteria/HPF None Seen HPF (None Seen); Bilirubin Negative (Negative); Blood, Urine Negative (Negative); CAUTI Indications for Culture Pelvic or flank pain; Clarity Clear (Clear); Glucose, Urine (Dipstick) Normal (Negative); Ketone, Urine Negative (Negative); Leukocyte Negative Leu/uL (Negative); Mucous/LPF Rare LPF (<2+); Nitrite Negative (Negative); Protein, Urine (Dipstick) 10 mg/dL (Neg-Trace); RBC/HPF 0-3 HPF (0-3); Specific Gravity, Urine 1.011 (1.002-1.036); Squamous Epithelial 0-3 HPF (0-3); Urobilinogen Normal mg/dL (Less than 2)
[2023-04-22 21:45] LABS: Urine Culture Reflex No No
[2023-04-22 22:45] LABS: Lactic Acid 2.7 mmol/L (0.5-2.2)
[2023-04-22] MEDS ORDERED: cefTRIAXone (ROCEPHIN) 1 GM VIAL ONE (22:58)
[2023-04-22] MEDS ORDERED: Potassium Chloride 20 MEQ TAB ONE (22:58)
[2023-04-22] MEDS ORDERED: Sodium Chloride 0.9% 100 ML ONE (22:58)
== END 2023-04-23 01:01 | disposition home or self-care (01) ==
LOC: ERS 19:05
DX: T50.905A Adverse effect of unspecified drugs, medicaments and biological substances, initial encounter (principal); F41.8 Other specified anxiety disorders; F43.10 Post-traumatic stress disorder, unspecified; F31.9 Bipolar disorder, unspecified; G35 Multiple sclerosis; B19.20 Unspecified viral hepatitis C without hepatic coma; I89.0 Lymphedema, not elsewhere classified; N31.9 Neuromuscular dysfunction of bladder, unspecified; C85.90 Non-Hodgkin lymphoma, unspecified, unspecified site; C53.9 Malignant neoplasm of cervix uteri, unspecified; I26.99 Other pulmonary embolism without acute cor pulmonale; I10 Essential (primary) hypertension; G40.909 Epilepsy, unspecified, not intractable, without status epilepticus; Z79.899 Other long term (current) drug therapy
CPT/HCPCS: 36415; 51701; 71045; 80053; 81001; 83605; 84484; 85025; 87040; 87077; 87086; 93005; 96361; 96365; J0696; J3490

== ENCOUNTER 2023-05-21 19:17 | Emergency (ER) | payer OTHER ==
[2023-05-21 19:36] LABS: #Eosinphils 0.3 thou/uL (0.0-0.7); #Monocytes 0.6 thou/uL (0.11-0.59); %Basophils 0.5 % (0.0-1.0); %Eosinophils 3.5 % (0.0-10.0); %Lymphocytes 31.9 % (21.0-51.0); %Monocytes 7.1 % (0.0-10.0); %Neutrophils 56.8 % (42.0-75.0); Hematocrit 34.3 % (36.0-47.0); Hemoglobin 11.2 g/dL (12.0-16.0); Mean Corpuscular HGB CONC 32.7 g/dL (32.0-36.0); Mean Corpuscular Hemoglobin 24.6 pg (27.0-31.0); Mean Corpuscular Volume 75.2 fl (78.0-98.0); Mean Platelet Volume 8.6 fL (7.4-10.4); Platelet Count 375 10x3/uL (130-400); Red Blood Cell (RBC) Count 4.56 mill/uL (4.20-5.40); White Blood Cell (WBC) Count 8.8 10x3/uL (4.8-10.8)
[2023-05-21 19:53] LABS: ALT (SGPT) 27 U/L (8-55); AST (SGOT) 39 U/L (5-34); Alkaline Phosphatase 136 U/L (40-110); Anion Gap 14 mmol/L (10-20); BUN (Urea Nitrogen) 13 mg/dL (9.8-20.1); Bilirubin, Total 0.7 mg/dL (0.2-1.2); Calc. Creatinine Clearance 0 mL/min (70-130); Calcium 9.1 mg/dL (7.8-10.44); Carbon Dioxide 26 mmol/L (22-29); Chloride 93 mmol/L (98-107); Estimated GFR 74; Globulin 2.9 g/dL (2.4-3.5); Glucose 94 mg/dL (70-105); Potassium 3.3 mmol/L (3.5-5.1); Protein, Total 6.9 g/dL (6.0-8.3); Sodium 130 mmol/L (136-145)
[2023-05-21] MEDS ORDERED: Acetaminophen 500 MG TAB ONE (20:22)
[2023-05-21] MEDS ORDERED: Potassium Chloride 20 MEQ TAB ONE (20:23)
== END 2023-05-21 21:09 | disposition home or self-care (01) ==
LOC: ERS 19:17
DX: M25.512 Pain in left shoulder (principal); M25.551 Pain in right hip; E87.6 Hypokalemia; E87.1 Hypo-osmolality and hyponatremia; G35 Multiple sclerosis; I10 Essential (primary) hypertension; C53.9 Malignant neoplasm of cervix uteri, unspecified; C85.90 Non-Hodgkin lymphoma, unspecified, unspecified site; C50.919 Malignant neoplasm of unspecified site of unspecified female breast; V89.2XXA Person injured in unspecified motor-vehicle accident, traffic, initial encounter
CPT/HCPCS: 71045; 80053; 85025; 93005; 96360; G0390

== ENCOUNTER 2023-05-25 13:58 | Emergency (ER) | payer OTHER ==
[2023-05-25 14:55] LABS: #Eosinphils 0.2 thou/uL (0.0-0.7); #Monocytes 0.4 thou/uL (0.11-0.59); #Neutrophils 4.5 thou/uL (1.40-6.50); %Basophils 0.6 % (0.0-1.0); %Eosinophils 2.7 % (0.0-10.0); %Lymphocytes 25.3 % (21.0-51.0); %Neutrophils 64.8 % (42.0-75.0); Hematocrit 33.2 % (36.0-47.0); Hemoglobin 10.8 g/dL (12.0-16.0); Mean Corpuscular HGB CONC 32.5 g/dL (32.0-36.0); Mean Corpuscular Volume 76.9 fl (78.0-98.0); Mean Platelet Volume 8.4 fL (7.4-10.4); Platelet Count 288 10x3/uL (130-400); Red Blood Cell (RBC) Count 4.32 mill/uL (4.20-5.40)
[2023-05-25 15:16] LABS: Troponin I 0.019 ng/mL (< 0.028)
[2023-05-25 15:27] LABS: ALT (SGPT) 27 U/L (8-55); AST (SGOT) 43 U/L (5-34); Alkaline Phosphatase 132 U/L (40-110); Anion Gap 13 mmol/L (10-20); BUN (Urea Nitrogen) 11 mg/dL (9.8-20.1); Bilirubin, Total 0.5 mg/dL (0.2-1.2); Calc. Creatinine Clearance 0 mL/min (70-130); Carbon Dioxide 27 mmol/L (22-29); Chloride 98 mmol/L (98-107); Estimated GFR 77; Globulin 2.5 g/dL (2.4-3.5); Glucose 143 mg/dL (70-105); Potassium 3.4 mmol/L (3.5-5.1); Protein, Total 6.5 g/dL (6.0-8.3); Sodium 136 mmol/L (136-145)
[2023-05-25 15:51] LABS: Bacteria/HPF None Seen HPF (None Seen); Bilirubin Negative (Negative); Blood, Urine Negative (Negative); CAUTI Indications for Culture Alt mental st,lethar; Clarity Clear (Clear); Glucose, Urine (Dipstick) Normal (Negative); Ketone, Urine Negative (Negative); Leukocyte Negative Leu/uL (Negative); Nitrite Negative (Negative); Protein, Urine (Dipstick) Negative (Neg-Trace); RBC/HPF 0-3 HPF (0-3); Squamous Epithelial None Seen HPF (0-3); Urobilinogen Normal mg/dL (Less than 2); WBC/HPF 0-3 HPF (0-3)
[2023-05-25 15:52] LABS: Urine Culture Reflex No No
== END 2023-05-25 19:05 | disposition home or self-care (01) ==
LOC: ERS 13:58
DX: R42 Dizziness and giddiness (principal); R53.1 Weakness; I10 Essential (primary) hypertension; C53.9 Malignant neoplasm of cervix uteri, unspecified; C85.90 Non-Hodgkin lymphoma, unspecified, unspecified site; G35 Multiple sclerosis; C50.919 Malignant neoplasm of unspecified site of unspecified female breast; W19.XXXA Unspecified fall, initial encounter; Z75.3 Unavailability and inaccessibility of health-care facilities; Z55.6 Problems related to health literacy; Z79.899 Other long term (current) drug therapy
CPT/HCPCS: 36415; 51701; 70450; 71045; 72125; 80053; 81001; 84484; 85025; 87086; 93005; 96360; 96361

== ENCOUNTER 2023-12-13 09:36 | Emergency (ER) | payer OTHER ==
[2023-12-13 10:11] LABS: #Basophils Less than 0.03 10x3/uL (0.0-0.2); %Basophils 0.1 % (0.0-1.0); %Eosinophils 3.6 % (0.0-10.0); %Lymphocytes 25.3 % (21.0-51.0); %Monocytes 5.8 % (0.0-10.0); %Neutrophils 64.6 % (42.0-75.0); Hematocrit 33.7 % (36.0-47.0); Hemoglobin 10.6 g/dL (12.0-16.0); Mean Corpuscular HGB CONC 31.5 g/dL (32.0-36.0); Mean Corpuscular Volume 73.1 fL (78.0-98.0); Mean Platelet Volume 8.5 fL (7.4-10.4); Platelet Count 300 10x3/uL (130-400); RBC Distribution Width 19.4 % (11.5-14.5); Red Blood Cell (RBC) Count 4.61 mill/uL (4.20-5.40)
[2023-12-13] MEDS ORDERED: Bacitracin 1 PK ONE (11:06)
[2023-12-13 11:07] LABS: ALT (SGPT) 34 U/L (8-55); AST (SGOT) 40 U/L (5-34); Albumin 3.1 g/dL (3.5-5.0); Alkaline Phosphatase 104 U/L (40-110); Anion Gap 15 mmol/L (10-20); BUN (Urea Nitrogen) 7 mg/dL (9.8-20.1); Bilirubin, Total 0.9 mg/dL (0.2-1.2); Calc. Creatinine Clearance 0 mL/min (70-130); Calcium 8.1 mg/dL (7.8-10.44); Carbon Dioxide 25 mmol/L (22-29); Chloride 102 mmol/L (98-107); Estimated GFR 86; Glucose 103 mg/dL (70-105); Potassium 4.3 mmol/L (3.5-5.1); Protein, Total 6.1 g/dL (6.0-8.3); Sodium 138 mmol/L (136-145)
[2023-12-13] MEDS ORDERED: Acetaminophen 500 MG TAB ONE (11:21)
== END 2023-12-13 13:12 | disposition home or self-care (01) ==
LOC: ERS 09:36
DX: R51.9 Headache, unspecified (principal); R47.81 Slurred speech; Z79.01 Long term (current) use of anticoagulants; W01.10XA Fall on same level from slipping, tripping and stumbling with subsequent striking against unspecified object, initial encounter
CPT/HCPCS: 36415; 70450; 80053; 85025

== ENCOUNTER 2024-12-23 11:46 | Emergency (ER) | payer OTHER ==
[2024-12-23 12:48] LABS: #Basophils 0.04 10x3/uL (0.0-0.2); #Eosinophils 0.21 10x3/uL (0.0-0.7); #Monocytes 0.49 10x3/uL (0.11-0.59); #Neutrophils 4.58 10x3/uL (1.40-6.50); %Basophils 0.6 % (0.0-1.0); %Eosinophils 2.9 % (0.0-10.0); %Lymphocytes 25.4 % (21.0-51.0); %Monocytes 6.9 % (0.0-10.0); %Neutrophils 64.1 % (42.0-75.0); Hematocrit 36.4 % (36.0-47.0); Hemoglobin 11.5 g/dL (12.0-16.0); Mean Corpuscular Hemoglobin 23.7 pg (27.0-31.0); Mean Corpuscular Volume 74.9 fL (78.0-98.0); Platelet Count 341 10x3/uL (130-400); Red Blood Cell (RBC) Count 4.86 mill/uL (4.20-5.40); White Blood Cell (WBC) Count 7.14 10x3/uL (4.8-10.8)
[2024-12-23 13:16] LABS: ALT (SGPT) 36 U/L (Less than 34); AST (SGOT) 57 U/L (11-34); Albumin 3.9 g/dL (3.1-4.5); Alkaline Phosphatase 105 U/L (40-110); Anion Gap 11 mmol/L (10-20); BUN (Urea Nitrogen) 10 mg/dL (9.8-20.1); Bilirubin, Total 0.5 mg/dL (0.3-1.2); Calc. Creatinine Clearance 0 mL/min (70-130); Calcium 9.2 mg/dL (7.8-10.44); Carbon Dioxide 27 mmol/L (22-29); Chloride 100 mmol/L (98-107); Globulin 3.1 g/dL (2.4-3.5); Glucose 106 mg/dL (70-105); Potassium 4.2 mmol/L (3.5-5.1); Sodium 134 mmol/L (136-145)
[2024-12-23 14:10] LABS: Anisocytosis SLIGHT = 6-15 cells HPF (0-5); Macrocytosis SLIGHT = 6-15 cells HPF (0-5); Ovalocytes SLIGHT = 2-5 cells HPF (0-1); Platelet Adequacy Comment Platelets Normal; Polychromasia SLIGHT = 2-3 cells HPF (0-2); Target Cells SLIGHT = 2-5 cells HPF (0-1)
[2024-12-23] MEDS ORDERED: methylPREDNISolone Sod Succ 1 GM in Sodium Chloride 0.9% 250 ML 250 ML IVPB SCH (15:00)
== END 2024-12-23 16:15 | disposition home or self-care (01) ==
LOC: ERS 11:46
DX: S06.9X9A Unspecified intracranial injury with loss of consciousness of unspecified duration, initial encounter (principal); G35.D Multiple sclerosis, unspecified; W18.30XA Fall on same level, unspecified, initial encounter
CPT/HCPCS: 70450; 72125; 80053; 85025; 93005; J2930; J7050; 96365; G0390

== ENCOUNTER 2025-02-20 12:40 | Inpatient (IN) | payer OTHER ==
[~2025-02-20 12:40] MED LIST changes: -Iopamidol-370 76% 500 ML 1 ML ONE; +Iopamidol-370 76% 500 ML MDV (1 ML CHARGE) ONE
[2025-02-20 13:10] LABS: #Basophils 0.05 10x3/uL (0.0-0.2); #Eosinophils 0.20 10x3/uL (0.0-0.7); #Monocytes 0.89 10x3/uL (0.11-0.59); #Neutrophils 4.28 10x3/uL (1.40-6.50); %Basophils 0.6 % (0.0-1.0); %Eosinophils 2.6 % (0.0-10.0); %Lymphocytes 30.4 % (21.0-51.0); %Monocytes 11.4 % (0.0-10.0); %Neutrophils 54.6 % (42.0-75.0); Hematocrit 33.0 % (36.0-47.0); Hemoglobin 10.6 g/dL (12.0-16.0); Mean Corpuscular Hemoglobin 24.0 pg (27.0-31.0); Mean Corpuscular Volume 74.8 fL (78.0-98.0); Platelet Count 381 10x3/uL (130-400); Red Blood Cell (RBC) Count 4.41 mill/uL (4.20-5.40); White Blood Cell (WBC) Count 7.83 10x3/uL (4.8-10.8)
[2025-02-20 13:23] LABS: INR-International Normal Ratio 1.2; Prothrombin Time 15.6 sec (12.0-14.7)
[2025-02-20 13:24] LABS: PTT 38.1 sec (22.9-36.1)
[2025-02-20 13:25] LABS: ALT (SGPT) 63 U/L (Less than 34); AST (SGOT) 86 U/L (11-34); Albumin 3.5 g/dL (3.1-4.5); Alkaline Phosphatase 121 U/L (40-110); Anion Gap 10 mmol/L (10-20); BUN (Urea Nitrogen) 10 mg/dL (9.8-20.1); Bilirubin, Total 0.3 mg/dL (0.3-1.2); Calc. Creatinine Clearance 0 mL/min (70-130); Calcium 8.9 mg/dL (7.8-10.44); Carbon Dioxide 31 mmol/L (22-29); Chloride 102 mmol/L (98-107); Globulin 2.4 g/dL (2.4-3.5); Glucose 244 mg/dL (70-105); Lipase 27 U/L (8-78); Potassium 4.1 mmol/L (3.5-5.1); Sodium 139 mmol/L (136-145)
[2025-02-20] MEDS ORDERED: Ondansetron PF 4 MG/2 ML Vial IVP PRN (16:10)
[2025-02-20] MEDS ORDERED: methylPREDNISolone Sod Succ/PF 1,000 MG in Sodium Chloride 0.9% 250 ML 250 ML IVPB SCH (20:15)
[2025-02-20 21:39] VITALS: BMI 40.6
[2025-02-20] MEDS: levETIRAcetam 500 MG TAB PO SCH (21:53)
[2025-02-20] MEDS: methylPREDNISolone Sod Succ 1 GM in Sodium Chloride 0.9% 250 ML 250 ML IVPB SCH (21:53)
[2025-02-20] MEDS: Lurasidone 40 MG TAB PO SCH (22:09)
[2025-02-20 23:57] LABS: Glucose, Urine (Dipstick) Negative (Negative); Leukocyte Large (Negative); Protein, Urine (Dipstick) Negative (Neg-Trace); Specific Gravity, Urine 1.010 (1.005-1.030)
[2025-02-21 00:15] LABS: Bacteria/HPF None Seen HPF (None Seen); CAUTI Indications for Culture Immunosuppressed; RBC/HPF 0-3 HPF (0-3); WBC/HPF Greater than 50 HPF (0-3)
[2025-02-21 00:23] LABS: Urine Culture Reflex Yes Yes
[2025-02-21 00:28] LABS: Cocaine Metabolite Screen Negative (Negative); THC/Cannabinoid Screen Negative (Negative); Tricyclic Screen PRELIM POSITIVE (Negative)
[2025-02-21 05:23] LABS: #Basophils Less than 0.03 10x3/uL (0.0-0.2); #Eosinophils Less than 0.03 10x3/uL (0.0-0.7); #Monocytes 0.06 10x3/uL (0.11-0.59); #Neutrophils 9.29 10x3/uL (1.40-6.50); %Basophils 0.2 % (0.0-1.0); %Eosinophils 0.1 % (0.0-10.0); %Lymphocytes 10.2 % (21.0-51.0); %Monocytes 0.6 % (0.0-10.0); %Neutrophils 88.3 % (42.0-75.0); Hematocrit 36.4 % (36.0-47.0); Hemoglobin 11.5 g/dL (12.0-16.0); Mean Corpuscular Hemoglobin 23.6 pg (27.0-31.0); Mean Corpuscular Volume 74.6 fL (78.0-98.0); Platelet Count 404 10x3/uL (130-400); Red Blood Cell (RBC) Count 4.88 mill/uL (4.20-5.40); White Blood Cell (WBC) Count 10.51 10x3/uL (4.8-10.8)
[2025-02-21 05:43] LABS: ALT (SGPT) 61 U/L (Less than 34); AST (SGOT) 78 U/L (11-34); Albumin 3.5 g/dL (3.1-4.5); Alkaline Phosphatase 128 U/L (40-110); Anion Gap 13 mmol/L (10-20); BUN (Urea Nitrogen) 10 mg/dL (9.8-20.1); Bilirubin, Total 0.6 mg/dL (0.3-1.2); Calc. Creatinine Clearance 179 mL/min (70-130); Calcium 8.8 mg/dL (7.8-10.44); Carbon Dioxide 26 mmol/L (22-29); Chloride 100 mmol/L (98-107); Globulin 3.0 g/dL (2.4-3.5); Glucose 293 mg/dL (70-105); Magnesium 1.5 mg/dL (1.6-2.6); Potassium 4.1 mmol/L (3.5-5.1); Sodium 135 mmol/L (136-145)
[2025-02-21] MEDS: Gabapentin 300 MG CAP PO SCH (09:03)
[2025-02-21] MEDS: Magnesium 2 GM/50 ML(in water) 2 GM in Premix 1 BAG IVPB SCH (12:38)
[2025-02-21] MEDS: Acetaminophen 325 MG TAB PO PRN (20:53)
[2025-02-22 04:32] LABS: #Basophils Less than 0.03 10x3/uL (0.0-0.2); #Eosinophils Less than 0.03 10x3/uL (0.0-0.7); #Monocytes 1.01 10x3/uL (0.11-0.59); #Neutrophils 10.00 10x3/uL (1.40-6.50); %Basophils 0.1 % (0.0-1.0); %Eosinophils 0.0 % (0.0-10.0); %Lymphocytes 17.3 % (21.0-51.0); %Monocytes 7.5 % (0.0-10.0); %Neutrophils 74.7 % (42.0-75.0); Hematocrit 32.0 % (36.0-47.0); Hemoglobin 10.6 g/dL (12.0-16.0); Mean Corpuscular Hemoglobin 24.1 pg (27.0-31.0); Mean Corpuscular Volume 72.7 fL (78.0-98.0); Platelet Count 382 10x3/uL (130-400); Red Blood Cell (RBC) Count 4.40 mill/uL (4.20-5.40); White Blood Cell (WBC) Count 13.40 10x3/uL (4.8-10.8)
[2025-02-22 04:46] LABS: ALT (SGPT) 45 U/L (Less than 34); AST (SGOT) 46 U/L (11-34); Albumin 3.2 g/dL (3.1-4.5); Alkaline Phosphatase 107 U/L (40-110); Anion Gap 13 mmol/L (10-20); BUN (Urea Nitrogen) 19 mg/dL (9.8-20.1); Bilirubin, Total 0.6 mg/dL (0.3-1.2); Calc. Creatinine Clearance 171 mL/min (70-130); Calcium 8.7 mg/dL (7.8-10.44); Carbon Dioxide 26 mmol/L (22-29); Chloride 99 mmol/L (98-107); Globulin 2.8 g/dL (2.4-3.5); Glucose 248 mg/dL (70-105); Magnesium 1.9 mg/dL (1.6-2.6); Potassium 4.0 mmol/L (3.5-5.1); Sodium 134 mmol/L (136-145)
[2025-02-22] MEDS ORDERED: Dextrose 50% Abboject 50 ML SYRINGE SLOW IVP PRN (08:50)
[2025-02-22] MEDS ORDERED: Glucagon 1 MG/ML KIT IM PRN (08:50)
[2025-02-22] MEDS: cefTRIAXone\\ROCEPHIN 1 GM in Sodium Chloride 0.9% 100 ML IVPB SCH (10:07)
[2025-02-23 04:06] LABS: #Basophils Less than 0.03 10x3/uL (0.0-0.2); #Eosinophils 0.24 10x3/uL (0.0-0.7); #Monocytes 0.93 10x3/uL (0.11-0.59); #Neutrophils 5.55 10x3/uL (1.40-6.50); %Basophils 0.2 % (0.0-1.0); %Eosinophils 2.3 % (0.0-10.0); %Lymphocytes 34.7 % (21.0-51.0); %Monocytes 9.0 % (0.0-10.0); %Neutrophils 53.5 % (42.0-75.0); Hematocrit 31.7 % (36.0-47.0); Hemoglobin 10.3 g/dL (12.0-16.0); Mean Corpuscular Hemoglobin 24.0 pg (27.0-31.0); Mean Corpuscular Volume 73.7 fL (78.0-98.0); Platelet Count 371 10x3/uL (130-400); Red Blood Cell (RBC) Count 4.30 mill/uL (4.20-5.40); White Blood Cell (WBC) Count 10.37 10x3/uL (4.8-10.8)
[2025-02-23 19:36] VITALS: TEMP 98.3
[2025-02-23 21:06] VITALS: BP 142/68
== END 2025-02-23 20:43 | disposition home health service (06) | DRG 59 ==
LOC: ERS 12:40 → SUATTDRO 12:40 → 2SE 16:12
PROVIDERS: ADMIT Family Medicine; ATTEND Student in an Organized Health Care Education/Training Program
DX: G35.D Multiple sclerosis, unspecified (principal); N39.0 Urinary tract infection, site not specified; R56.9 Unspecified convulsions; I89.0 Lymphedema, not elsewhere classified; M54.50 Low back pain, unspecified; B96.89 Other specified bacterial agents as the cause of diseases classified elsewhere; Z86.711 Personal history of pulmonary embolism; Z79.01 Long term (current) use of anticoagulants; Z88.0 Allergy status to penicillin
CPT/HCPCS: 36415; 70450; 70553; 71260; 72125; 72156; 74177; 76376; 80053; 80306; 80307; 81001; 83690; 83735; 83880; 84484; 85025; 85610; 85730; 86850; 86870; 86900; 86901; 86905; 86922; 87077; 87086; 87186; 93005; 96360; 96361; J0696; J2930; J3475; J7050; Q0177; Q9967